=== PATIENT | female | born 1990 | race African-American/Black ===

== ENCOUNTER 2016-09-27 15:54 | Inpatient (IN) | payer OTHER ==
--- NOTE | 2016-09-27 16:14 | PDOC ---
History of Present Illness - General Chief Complaint: Chest Pain Stated Complaint: CHEST PAIN/ Time Seen by Provider: 09/27/16 16:11 History Source: Patient Exam Limitations: No Limitations - History of Present Illness Initial Comments: 09/27/16 16:25 26y F at approx 18 weeks gestation, hx of sickle cell (hx of multiple blood transfusiosn), prseenst with cp. The pt states she has had 1 month of URI like symptoms, and for th past 2 days she has had a substernal/epigastric sharp aching that is worse when she is coughing. The pt endorses having a couple of post tussive vomiting episodes due to her coughing, th coughing is productive of yellowish mucus. The pt denies any fever, hemoptysis, leg swelling, calf pain. The pt does endorse mild sob when ambulating. No hx of dvt/PEs. Pt staets her typical sickle cell crisis includes pain in her back. Pt also endorses feeling generally weak and feeling dizzy when she is walking around - she describes it as sensation of movement. Past History - Past Medical History Allergies/Adverse Reactions: Allergies Allergy/AdvReac Type Severity Reaction Status Date / Time No Known Allergies Allergy Verified 09/27/16 15:59 Home Medications: Ambulatory Orders Folic Acid 1 mg PO DAILY 08/10/16 Pnv95/Ferrous Fumarate/FA [ Caplet] 1 each PO DAILY 08/10/16 Anemia: Yes (SICKLE CELL) Asthma: No Cancer: No Cardiac Disorders: No CVA: No COPD: No CHF: No Dementia: No Diabetes: No GI Disorders: No Disorders: No HTN: No Hypercholesterolemia: No Liver Disease: No Suicide Attempt (Hx): No Seizures: No Thyroid Disease: No - Surgical History Abdominal Surgery: No Appendectomy: No Cardiac Surgery: No Cholecystectomy: No Lung Surgery: No Neurologic Surgery: No Orthopedic Surgery: No - Immunization History Immunization Up to Date: Yes - Psycho/Social/Smoking Cessation Hx Anxiety: No Suicidal Ideation: No Smoking Status: No Smoking History: Never smoked Have you smoked in the past 12 months: No Number of Cigarettes Smoked Daily: 0 Information on smoking cessation initiated: No Hx Alcohol Use: No Drug/Substance Use Hx: No Substance Use Type: None Hx Substance Use Treatment: No Cardiac Specific PMH - Complaint Specific PMHX Pacemaker: No Review of Systems - Review of Systems Able to Perform ROS?: Yes Comments:: 09/27/16 16:30 Constitutional - no reported Fever, Chills, weakness, HEENT: no reported vision changes, sore throat Respiratory: +cough, no reported sob, hemoptysis Cardiac: +light headedness, chest pain/epigastric pain no reported palpitations , leg swelling Abd/GI: +post tussive vomiting no reported abd pain, nausea, blood per rectum, melena, diarrhea : no reported dysuria, frequency, discharge Musculskelatal - +back pain, no reported joint swelling skin - no reported bruising, erythema, rash neurological: +vertigo no reported headache, numbness, focal weakness, tingling , ataxia, weakness hematologic: no reported anemia, easy bruising, easy bleeding *Physical Exam - Vital Signs Last Vital Signs Temp Pulse Resp BP Pulse Ox 98.6 F 74 18 100/59 95 09/27/16 18:00 09/27/16 16:02 09/27/16 16:02 09/27/16 16:02 09/27/16 16:02 - Physical Exam Comments: 09/27/16 16:31 GENERAL: The patient is awake, alert, and fully oriented, Nontoxic - in no acute distress. HEAD: Normocephalic, atraumatic. EYES: extraocular movements intact, sclera anicteric, conjunctiva clear. ENT: Normal voice, Moist mucous membranes. NECK: Normal range of motion, supple LUNGS: Breath sounds equal, clear to auscultation bilaterally. No wheezes, no rhonchi, no rales. HEART: Regular rate and rhythm, normal S1 and S2 without murmur, rub or gallop. ABDOMEN: gravid abdomen, soft, nontender, normoactive bowel sounds. No guarding , no rebound. No CVA tenderness EXTREMITIES: Normal range of motion, no edema. No clubbing or cyanosis. No cords, erythema, or tenderness. NEUROLOGICAL: No facial assymetry, Normal speech, PSYCH: Normal mood, normal affect. SKIN: Warm, Dry, normal turgor, Heart Score/ECG Review - ECG Impressions Comment:: 09/27/16 16:31 Twelve-lead EKG was performed and reviewed by me. There is normal sinus rhythm with a normal rate. rate of 61 The axis is normal. The intervals are normal. There is normal R wave progression There are no ST or T wave abnormalities. Impression: Normal twelve-lead EKG ED Treatment Course - LABORATORY CBC & Chemistry Diagram: 09/27/16 16:56 09/27/16 16:56 - ADDITIONAL ORDERS Additional order review: Laboratory Results 09/27/16 09/27/16 09/27/16 22:20 16:56 16:56 Sodium Potassium Chloride Carbon Dioxide Anion Gap BUN Creatinine Creat Clearance w eGFR Random Glucose Calcium Total Bilirubin AST ALT Alkaline Phosphatase Creatine Kinase Troponin I Total Protein Albumin Lipase 62 L Urine Color Shayy Urine Appearance Clear Urine pH 6.0 Ur Specific [place] 1.012 Urine Protein Negative Urine Glucose (UA) Negative Urine Ketones Negative Urine Blood Negative Urine Nitrite Negative Urine Bilirubin Negative Urine Urobilinogen 2.0 e.u/dl H Ur Leukocyte Esterase Negative Blood Type O POSITIVE Antibody Screen Negative Crossmatch See Detail 09/27/16 16:56 Sodium 137 Potassium 3.9 Chloride 108 H Carbon Dioxide 22 Anion Gap 7 L BUN 5 L D Creatinine 0.5 L D Creat Clearance w eGFR > 60 Random Glucose 70 L Calcium 7.8 L Total Bilirubin 2.0 H D AST 36 ALT 20 D Alkaline Phosphatase 80 D Creatine Kinase 40 Troponin I < 0.02 Total Protein 7.2 Albumin 3.2 L Lipase Urine Color Urine Appearance Urine pH Ur Specific [place] Urine Protein Urine Glucose (UA) Urine Ketones Urine Blood Urine Nitrite Urine Bilirubin Urine Urobilinogen Ur Leukocyte Esterase Blood Type Antibody Screen Crossmatch 09/27/16 16:56 RBC 2.37 L MCV 103.6 H MCHC 33.4 RDW 19.1 H MPV 9.9 D Neutrophils % 69.4 Lymphocytes % 19.7 Monocytes % 8.7 Eosinophils % 1.6 Basophils % 0.6 - RADIOLOGY Radiology Studies Ordered: Category Date Time Status CHEST PA & LAT [RAD] Stat Radiology 09/27/16 16:23 Taken - Medications Given in the ED: ED Medications Discontinued Medications Generic Name Dose Route Start Last Admin Trade Name Freq PRN Reason Stop Dose Admin Acetaminophen 650 mg 09/27/16 16:34 09/27/16 16:56 Tylenol - PO 09/27/16 16:35 650 mg ONCE ONE Administration Sodium Chloride 1,000 mls @ 1,000 mls/hr 09/27/16 16:23 09/27/16 16:56 Normal Saline - IV 09/27/16 17:22 1,000 mls/hr .Q1H ONE Administration Meclizine HCl 25 mg 09/27/16 16:23 09/27/16 16:56 Antivert - PO 09/27/16 16:24 25 mg ONCE ONE Administration Medical Decision Making - Medical Decision Making 09/27/16 16:32 26y F hx of sickle cell anemia, at approx 18 weeks gestation presents with cough /congestion, with substernal/epigastric nonradiating cp that is worse when she is coughing, pt also endorses malaise/fatigue. w/o leg swelling,calf pain, hemoptysis, several episodes of posttussive vomiting. w/o abd pain suspect her sypmtmos are secondary to bronchitis/viral syndrome. considered possible sickle cell crisis, however based on minimal severity of pain, unlikely - also considered PEa s the pt is , however feel it is unlikely as pt has been having associated URI like symptoms. will obtain ekg acetaminophen for pain meclizine for vertigo will obtain blood work to r/o anemia considered obtaining cxr to r/o pathology as pt has hx of sickle cell and persistent cough - i discussed risk of xray with the patient - and pt states she prefers to obtain the cxr and is aware of the risks and understands she will be shielded. 09/27/16 21:25 09/27/16 21:25 sent a retic count as pts bilirubin was high it is elevated to 14 possible sickle pain crisis pt states she normally gets transfused when feeling weak and hgb <9 will discuss with inspector paper products regarding recommendations 09/27/16 23:29 case dw/ dr. reynolds no specific recommendations for pts w/ sickle cell pain crsis - agrees with transufsion case d/w dr. brice agreed with admission for further mangaement/transfusion Case discussed in detail with admitting physician including history, physical exam and ancillary studies. Admitting physician has assumed care for the patient, will follow all pending diagnostics and will complete the evaluation and treatment. *DC/Admit/Observation/Transfer Diagnosis at time of Disposition: Sickle cell anemia with crisis, 14-20 weeks gestation of - Discharge Dispostion Condition at time of disposition: Guarded Admit: Yes Decision to Admit order Date/Time: Decision to Admit Order Category Date Time Status Decision to Admit to Hospital Routine Phy Order 09/27/16 23:30 Ordered
[2016-09-27] MEDS ORDERED: SODIUM CHLORIDE 1,000 ML IV ONE (16:23)
[2016-09-27] MEDS ORDERED: MECLIZINE HCL 25 MG TABLET (FP) PO ONE (16:23)
[2016-09-27] MEDS ORDERED: ACETAMINOPHEN 325 MG TABLET (FP) PO ONE (16:34)
[2016-09-27] MEDS ORDERED: ACETAMINOPHEN 325 MG TABLET (FP) ONE (16:42)
[2016-09-27] MEDS ORDERED: MECLIZINE HCL 25 MG TABLET (FP) ONE (16:43)
[2016-09-27 18:04] LABS: BASOPHIL 0.6 % (0-2.0); EOSINOPHIL 1.6 % (0-4.5); MCH 34.6 pg (25.7-33.7); MCHC 33.4 g/dl (32.0-36.0); MEAN CELL VOLUME 103.6 fl (80-96); MEAN PLT VOLUME 9.9 fl (7.5-11.1); NEUTROPHILS 69.4 % (42.8-82.8); PLATELET COUNT 331 K/MM3 (134-434); RDW 19.1 % (11.6-15.6); WHITE BLOOD COUNT 15.3 K/mm3 (4.0-10.0)
[2016-09-27 18:12] LABS: ALBUMIN 3.2 g/dl (3.4-5.0); ANION GAP 7 (8-16); CALCIUM 7.8 mg/dL (8.5-10.1); CO2 22 mmol/L (21-32); CREATININE 0.5 mg/dL (0.55-1.02); GLUCOSE,RANDOM 70 mg/dL (74-106); SGOT/AST 36 U/L (15-37); SGPT/ALT 20 U/L (12-78); TOT PROT 7.2 g/dl (6.4-8.2)
[2016-09-27 18:15] LABS: ALK PHOS 80 U/L (45-117); TROPONIN I < 0.02 ng/ml (0.00-0.05)
[2016-09-27 19:13] LABS: URINE APPEARANCE CLEAR; URINE BILIRUBIN NEGATIVE (NEGATIVE); URINE BLOOD NEGATIVE (NEGATIVE); URINE COLOR AMBER; URINE GLUCOSE (UA) NEGATIVE (NEGATIVE); URINE KETONE NEGATIVE (NEGATIVE); URINE LEUK ESTERASE NEGATIVE (NEGATIVE); URINE NITRITE NEGATIVE (NEGATIVE); URINE PROTEIN NEGATIVE (NEGATIVE); URINE UROBILINOGEN 2.0 E.U/dl E.U./dl (0.2-1.0)
[2016-09-27 19:48] LABS: ANISOCYTOSIS 1+; HYPOCHROMIA 1+; PLATELET COMMENT2 NO CLOTTING DETECTED; PLATELET ESTIMATE ADEQUATE (NORMAL); POLYCHROMASIA 1+
[2016-09-28 02:42] VITALS: BMI 24.2
[2016-09-28] MEDS ORDERED: morphine CARPU-JECT 2 MG/1 ML DISP.SYRIN IVPUSH PRN (03:24)
[2016-09-28] MEDS ORDERED: HYDROmorphone HCL CARPU-JECT 1 MG/1 ML DISP.SYRIN IVPB PRN ×2 (03:35→08:07)
--- NOTE | 2016-09-28 03:44 | HP ---
Admitting History and Physical - Admission Chief Complaint: left sided chest pain History of Present Illness: 26 year old 18week black f with hx of sickle cell disease, heart murmur /irreg heart beat, who presents to the er for evaluation of non- exertional left sided chest pain 10/10 x 2 days. she reports that pain as sharp and aggravated with breathing and laying on either side of her body. she states that the pain radiates to the lower left side of her back. She reports having a productive cough with yellowish sputum x 1 months and was seen in the ER 12-10 for URI symptoms. She reports nasal congestion with greenish discharge at home and 2 episodes of blood in nasal d/c while in the ER. She denies sinus pain. She also reports lethargy x 1month. She reports having phlegm stuck in her throat giving her the sensation of vomiting. She reports several episodes of post-tussive vomiting over the past several days. She denies any trauma, hemoptysis, leg swelling, leg edema, calf pain, recent prolonged immobolization or travel, prior pe/dvt, family hx of pe/dvt or clotting disorders. She reports periodic night sweats but relates it to her apt being hot. She reports having some loose stools x 1 day. she denies fevers, chills, diarrhea, dysuria, bloody stools, vaginal bleeding. She reports feeling fetus move. pmh/psh- , sickle cell disease, heart murmur/irreg heart beat social- denies tobacco, rec drugs, alcohol famhx- mom/dad healthy specialists: obgyn- follows at [facility] heme- follows at [facility] Ros neg except for hpi physical general- in nad hent- neck supple, trachea midline, no lymphadenopathy, eomi, at/nc resp- +cough, +nasal discharge, lungs ctab, no rales, no ronhci, no wheeze, no accessory muscle use cards- s1s2 heard, no leg swelling, extremity pulses +2, no ttp over chest wall , RRR skin- clean intact, no rashes, no tears, no lesions musk- normal arom bue ble gi- soft non-tender, no guarding, no rebound, no distention psych- cooperative, slightly agitated, normal affect neuro- cn2-12 intact, speech clear, no droop, no seizures, toes down going, prob list chest pain sickle cell crisis 18 weeks uri imaging: ekg reviewed cxr reviewed a/p 26 year old 18week black f with hx of sickle cell disease, heart murmur /irreg heart beat, who presents to the er for evaluation of non- exertional left sided chest pain 10/10 x 2 days admitted for eval of their emergent condition 1. atypical chest pain, ?acute chest pain syndrome v pna v pe v acs v other ekg neg for owen/std cxr negative on my read 1 st trop negative low suspicion for pe as patient no clinical signs suggestive;wells score= 0; perc =0 cycle trops IVF Pain control Transfuse 1 uprbc Supp O2 2. URI Supportive care patient refused flu swab per RN 3. 18 week cont vitamins no vaginal bleeding fen ns 150cc/hr regular diet dvt prophy scds, early ambulation, expect stay less than 2 days Dispo- likely d/c in 1-2 days History Source: Patient Limitations to Obtaining History: No Limitations - Past Medical History Cardiovascular: No: AFIB, Aneurysm, Aortic Insufficiency, Aortic Stenosis, CAD, CHF, Deep Vein Thrombosis, HTN, Hyperlipdemia, [place], Mitral Insufficiency, Mitral Stenosis, Murmur, Pulmonary Hypertension, Other ...LMP: 05/24/16 ...: Yes Heme/Onc: Yes: Anemia, Sickle Cell Disease - Smoking History Smoking history: Never smoked Have you smoked in the past 12 months: No Aproximately how many cigarettes per day: 0 - Alcohol/Substance Use Hx Alcohol Use: No Home Medications - Allergies Allergies/Adverse Reactions: Allergies Allergy/AdvReac Type Severity Reaction Status Date / Time No Known Allergies Allergy Verified 09/27/16 15:59 - Home Medications Home Medications: Ambulatory Orders Folic Acid 1 mg PO DAILY 08/10/16 Pnv95/Ferrous Fumarate/FA [ Caplet] 1 each PO DAILY 08/10/16 Family Disease History - Family Disease History Family Disease History: Diabetes: Father (sickle trait), Mother (sickle trait), Other: Father, Mother Physical Examination Vital Signs: Vital Signs Temperature 98.1 F 09/28/16 01:00 Pulse Rate 77 09/28/16 01:00 Respiratory Rate 19 09/28/16 01:00 Blood Pressure 110/69 09/28/16 01:00 O2 Sat by Pulse Oximetry (%) 98 09/28/16 01:00 Visit type - Emergency Visit Emergency Visit: Yes ED Registration Date: 09/28/16 Care time: The patient presented to the Emergency Department on the above date and was hospitalized for further evaluation of their emergent condition. - New Patient This patient is new to me today: Yes Date on this admission: 09/28/16 - Critical Care Critical Care patient: No
[2016-09-28] MEDS: SODIUM CHLORIDE 1,000 ML IV SCH (04:00)
--- NOTE | 2016-09-28 09:58 | HOSP ---
Physical Examination Vital Signs: Vital Signs Temperature 98.1 F 09/28/16 01:00 Pulse Rate 77 09/28/16 01:00 Respiratory Rate 19 09/28/16 01:00 Blood Pressure 110/69 09/28/16 01:00 O2 Sat by Pulse Oximetry (%) 98 09/28/16 01:00 Hospitalist Encounter Assessment: Subjective: The patient was seen and examined at the bedside, she is complaining about lower abdominal pain. Hydromorphine discontinued Acetaminophen for pain Folic acid, mvi, iv fluids Blood draw today at 10am was POST PRBC transfusion: Hgb 8.1 Current Medications Generic Name Dose Route Start Last Admin Trade Name Freq PRN Reason Stop Dose Admin Acetaminophen 650 mg 09/28/16 03:23 Tylenol - PO Q4H PRN FEVER OR PAIN Folic Acid 1 mg 09/28/16 10:00 Folic Acid - PO DAILY [facility] Sodium Chloride 1,000 mls @ 150 mls/hr 09/28/16 03:30 09/28/16 04:00 Normal Saline - IV Not Given ASDIR CATIA Multivit/Folic Acid/Iron 1 tab 09/28/16 10:00 Vitamins (Sjr) - PO DAILY [facility] Objective: Vital Signs Period Temp Pulse Resp BP Sys/Ornelas Pulse Ox Last 24 Hr 97.8 F-99.1 F 62-77 18-19 100-110/59-69 95-98 Physical Exam: General: NAD, A&Ox3 Lungs: CTA bilaterally Heart: RRR, S1S2. Reproducible left sided chest pain Abd: Soft, non-tender. mildly distended 2/2 Ext: Warm, well-perfused. 2+ DP/PT bilaterally Neuro: CN 2-12 intact CBCD WBC 15.3 K/mm3 (4.0-10.0) H 09/27/16 16:56 RBC 2.37 M/mm3 (3.60-5.2) L 09/27/16 16:56 Hgb 8.2 GM/dL (10.7-15.3) L 09/27/16 16:56 Hct 24.6 % (32.4-45.2) L 09/27/16 16:56 MCV 103.6 fl (80-96) H 09/27/16 16:56 MCHC 33.4 g/dl (32.0-36.0) 09/27/16 16:56 RDW 19.1 % (11.6-15.6) H 09/27/16 16:56 Plt Count 331 K/MM3 (134-434) 09/27/16 16:56 MPV 9.9 fl (7.5-11.1) D 09/27/16 16:56 CMP Sodium 137 mmol/L (136-145) 09/27/16 16:56 Potassium 3.9 mmol/L (3.5-5.1) 09/27/16 16:56 Chloride 108 mmol/L (98-107) H 09/27/16 16:56 Carbon Dioxide 22 mmol/L (21-32) 09/27/16 16:56 Anion Gap 7 (8-16) L 09/27/16 16:56 BUN 5 mg/dL (7-18) L D 09/27/16 16:56 Creatinine 0.5 mg/dL (0.55-1.02) L D 09/27/16 16:56 Creat Clearance w eGFR > 60 (>60) 09/27/16 16:56 Random Glucose 70 mg/dL (74-106) L 09/27/16 16:56 Calcium 7.8 mg/dL (8.5-10.1) L 09/27/16 16:56 Total Bilirubin 2.0 mg/dL (0.2-1.0) H D 09/27/16 16:56 AST 36 U/L (15-37) 09/27/16 16:56 ALT 20 U/L (12-78) D 09/27/16 16:56 Alkaline Phosphatase 80 U/L (45-117) D 09/27/16 16:56 Total Protein 7.2 g/dl (6.4-8.2) 09/27/16 16:56 Albumin 3.2 g/dl (3.4-5.0) L 09/27/16 16:56 CARDIAC ENZYMES Creatine Kinase 40 IU/L (26-192) 09/27/16 16:56 Troponin I < 0.02 ng/ml (0.00-0.05) 09/28/16 03:30 Assessment: This is a 26 year old female 18 week gestation, sickle cell disease , who presented to the ED with non-exertional left sided chest pain x2 days Plan: 1) Cardiology: Atypical chest pain - Trop x2 negative, f/u 3rd trop - EKG NSR @61, no ST elevations or depressions - Chest X-ray performed to r/o acute chest syndrome, no acute process noted - Well's score 0, low clinical suspicion for PE - Patient reports chest pain has resolved, now reports "typical" sickle cell pain in back and lower abdomen 2) Heme: sickle cell crisis - Continue IV fluids - Continue folic acid - Continue MVI - Elevated reticulocyte count, f/u lab today - Received 1u PRBC - No evidence of acute chest syndrome 3) ID: Upper respiratory infection - Likely viral, however leukocytosis - Afebrile - Patient refused flu swab per RN - Supportive care - Monitor WBC 4) OB: 18 week gestation - Continue folic acid - Continue MVI - No vaginal bleeding - Follows with OB (does not know name) at [facility] 5) F/E/N: - Monitor electrolytes - IV fluids 6) Prophylaxis: - OOB ambulating - SCDs bilaterally 7) Dispo: - Requires continued monitoring CODE STATUS: FULL CODE
[2016-09-28] MEDS: PRENATAL VITAMINS W/ FOLIC ACID TABLET (FP) PO SCH (10:11)
[2016-09-28] MEDS: FOLIC ACID 1 MG TABLET (FP) PO SCH (10:11)
[2016-09-28 10:40] LABS: BASOPHIL 0.8 % (0-2.0); EOSINOPHIL 2.6 % (0-4.5); MCH 35.4 pg (25.7-33.7); MEAN CELL VOLUME 101.2 fl (80-96); MEAN PLT VOLUME 9.3 fl (7.5-11.1); NEUTROPHILS 66.2 % (42.8-82.8); PLATELET COUNT 294 K/MM3 (134-434); WHITE BLOOD COUNT 13.4 K/mm3 (4.0-10.0)
[2016-09-28 11:04] LABS: ALBUMIN 2.9 g/dl (3.4-5.0); ALK PHOS 69 U/L (45-117); ANION GAP 9 (8-16); BILIRUBIN,TOTAL 2.1 mg/dL (0.2-1.0); CALCIUM 8.2 mg/dL (8.5-10.1); CO2 20 mmol/L (21-32); CREATININE 0.3 mg/dL (0.55-1.02); GLUCOSE,RANDOM 67 mg/dL (74-106); SGOT/AST 31 U/L (15-37); SGPT/ALT 18 U/L (12-78); TOT PROT 6.4 g/dl (6.4-8.2)
--- NOTE | 2016-09-28 13:09 | EKG ---
Test Reason : Blood Pressure : / mmHG Vent. Rate : 061 BPM Atrial Rate : 061 BPM P-R Int : 192 ms QRS Dur : 082 ms QT Int : 422 ms P-R-T Axes : -06 054 040 degrees QTc Int : 424 ms NORMAL SINUS RHYTHM NORMAL ECG WHEN COMPARED WITH ECG OF 10-AUG-2016 09:34, NO SIGNIFICANT CHANGE WAS FOUND Confirmed by MATTEO STAPLETON MD ([id number]) on 09/28/2016 1:09:09 PM Referred By: Overread By: MATTEO STAPLETON MD
[2016-09-28 13:15] LABS: TROPONIN I < 0.02 ng/ml (0.00-0.05)
[2016-09-28] MEDS: ACETAMINOPHEN 325 MG TABLET (FP) PO PRN (13:55)
[2016-09-28 14:37] LABS: ANISOCYTOSIS 2+; HYPOCHROMIA 2+; PLATELET ESTIMATE ADEQUATE (NORMAL); POIKILOCYTOSIS 2+; POLYCHROMASIA 2+
[2016-09-28] MEDS ORDERED: PT OWN MED DRAWER 7, Y5N ONE (15:24)
[2016-09-29] MEDS: SODIUM CHLORIDE 1,000 ML IV SCH ×2 (06:40→06:41)
[2016-09-29 06:58] VITALS: TEMP 98.4
[2016-09-29 08:23] LABS: MCH 35.3 pg (25.7-33.7); MCHC 34.8 g/dl (32.0-36.0); MEAN CELL VOLUME 101.4 fl (80-96); MEAN PLT VOLUME 9.3 fl (7.5-11.1); PLATELET COUNT 299 K/MM3 (134-434); RDW 21.3 % (11.6-15.6); WHITE BLOOD COUNT 12.2 K/mm3 (4.0-10.0)
[2016-09-29 08:43] LABS: ALBUMIN 2.7 g/dl (3.4-5.0); ANION GAP 7 (8-16); CALCIUM 7.9 mg/dL (8.5-10.1); CO2 22 mmol/L (21-32); GLUCOSE,RANDOM 79 mg/dL (74-106); SGOT/AST 29 U/L (15-37)
[2016-09-29 08:50] LABS: ALK PHOS 69 U/L (45-117); CREATININE 0.3 mg/dL (0.55-1.02); SGPT/ALT 16 U/L (12-78); TOT PROT 6.3 g/dl (6.4-8.2)
[2016-09-29] MEDS: ACETAMINOPHEN 325 MG TABLET (FP) PO PRN (10:34)
[2016-09-29] MEDS: FOLIC ACID 1 MG TABLET (FP) PO SCH (10:34)
[2016-09-29] MEDS: PRENATAL VITAMINS W/ FOLIC ACID TABLET (FP) PO SCH (10:49)
--- NOTE | 2016-09-29 12:14 | DS ---
[id number] Rate 18 09/29/16 06:00 Blood Pressure 103/60 09/29/16 06:00 O2 Sat by Pulse Oximetry (%) 98 09/28/16 21:00 Findings/Remarks: Physical Exam: General: NAD, A&Ox3 Lungs: CTA bilaterally Heart: RRR, S1S2. Reproducible left sided chest pain Abd: Soft, non-tender. mildly distended 2/2 Ext: Warm, well-perfused. 2+ DP/PT bilaterally Neuro: CN 2-12 intact Labs: CBC, BMP 09/29/16 07:30 09/29/16 07:30 Discharge Summary Reason For Visit: SICKLE CELL ANEMIA WITH CRISIS Current Active Problems 14-20 weeks gestation of (Acute) Sickle cell anemia with crisis (Acute) Hospital Course: This is a 26 year old female 18 week gestation, sickle cell disease, who presented to the ED with non-exertional left sided chest pain x2 days Plan: 1) Cardiology: Atypical chest pain - Trop x3 negative - EKG NSR @61, no ST elevations or depressions - Chest X-ray performed to r/o acute chest syndrome, no acute process noted - Well's score 0, low clinical suspicion for PE - Patient reports chest pain has resolved, now reports "typical" sickle cell pain in back and lower abdomen 2) Heme: sickle cell crisis - Continue IV fluids - Continue folic acid - Continue MVI - Elevated reticulocyte count, f/u lab today - Received 1u PRBC - No evidence of acute chest syndrome 3) ID: Upper respiratory infection - Likely viral, however leukocytosis - Afebrile - Patient refused flu swab per RN - Supportive care - Monitor WBC 4) OB: 18 week gestation - Continue folic acid - Continue MVI - No vaginal bleeding - Follows with OB (does not know name) at [facility] Instructed the patient to follow-up with pcp and OB as scheduled. Please return to the ED with new, persistent, or worsening symptoms. This discharge took 35 minutes to complete. Condition: Improved - Instructions Diet, Activity, Other Instructions: Activity as tolerated Regular diet May take shower f/u with [employer] Disposition: HOME - Home Medications Comprehensive Discharge Medication List: Ambulatory Orders Folic Acid 1 mg PO DAILY 08/10/16 Pnv95/Ferrous Fumarate/FA [ Caplet] 1 each PO DAILY 08/10/16 This patient is new to me today: No Emergency Visit: Yes ED Registration Date: 09/28/16 Care time: The patient presented to the Emergency Department on the above date and was hospitalized for further evaluation of their emergent condition. Critical Care patient: No - Discharge Referral Referred to [facility] Med [facility].: No
[2016-09-29 12:26] VITALS: BP 111/60; PULSE 72
== END 2016-09-29 12:21 | disposition home or self-care (01) | DRG 781 ==
LOC: JER 15:54 → JERBED 09-28 00:12 → J6S 09-28 02:32 → J8W 09-28 15:31
PROVIDERS: ADMIT Internal Medicine; ATTEND Registered Nurse
PROC: 30233N1 Transfusion of Nonautologous Red Blood Cells into Peripheral Vein, Percutaneous Approach (ICD-10-PCS; principal; 2016-09-28)
DX: O99.012 Anemia complicating pregnancy, second trimester (principal); D57.819 Other sickle-cell disorders with crisis, unspecified; O99.412 Diseases of the circulatory system complicating pregnancy, second trimester; J06.9 Acute upper respiratory infection, unspecified
CPT/HCPCS: 36415; 36430; 71020-TC; 80053; 81003; 82550; 83690; 84484; 85025; 85027; 85044; 86850; 86900; 86901; 86922; 93005; 93010; 94010; 99284-25; P9058

== ENCOUNTER 2016-11-03 19:39 | Inpatient (IN) | payer OTHER ==
[2016-11-03 17:54] LABS: URINE APPEARANCE CLEAR; URINE BILIRUBIN NEGATIVE (NEGATIVE); URINE COLOR AMBER; URINE GLUCOSE (UA) NEGATIVE (NEGATIVE); URINE KETONE NEGATIVE (NEGATIVE); URINE LEUK ESTERASE NEGATIVE (NEGATIVE); URINE NITRITE NEGATIVE (NEGATIVE); URINE UROBILINOGEN 2.0 E.U/dl E.U./dl (0.2-1.0)
[2016-11-03 18:09] LABS: URINE BLOOD 2+ (NEGATIVE); URINE PROTEIN 1+ (NEGATIVE)
[2016-11-03 18:12] LABS: URINE RBC 2 /hpf (0-3); URINE WBC 2 /hpf (3-5)
[2016-11-03 18:33] LABS: MCH 35.4 pg (25.7-33.7); MEAN CELL VOLUME 104.1 fl (80-96); MEAN PLT VOLUME 9.4 fl (7.5-11.1); PLATELET COUNT 271 K/MM3 (134-434); RDW 20.9 % (11.6-15.6); WHITE BLOOD COUNT 13.8 K/mm3 (4.0-10.0)
--- NOTE | 2016-11-03 18:51 | CON.OBG ---
Consult Consult Specialty:: lawyer probate Referred by:: Leonarda Lake Reason for Consultation:: ob evaluation pt known c/o sickle cell anemia - History of Present Illness Chief Complaint: 26 yrs , 23.3 weeks gestation, previous c/sect, , known c/o sickle cell anemia c/o backache, jointpain, pt feels she is in sickle cell crisis . no c/o abdominal cramping. vaginal discharge , no itching or odor to it History of Present Illness: pt was hospitalized last for sickle crisis on 09/28/16 & discharged on 09/29/16 she had received 1 unit of pack cell she had cardilogy consult for atypical chest pain , ekg done, Pulmonary embolism was ruled out. pt had 3 or 4 admissions in present pregn for sickle crisis sh had one admission at [facility] at 5 weeks gestation as per pt was tranfused there .. 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: No: CVA, Migraine, Seizure Cardio/Vascular: No: AFIB, Aneurysm, Aortic Insufficiency, Aortic Stenosis, CAD , CHF, Deep Vein Thrombosis, HTN, Hyperlipdemia, RI, Mitral Insufficiency, Mitral Stenosis, Murmur, Pulmonary Hypertension, Other Pulmonary: No: Asthma Gastrointestinal: Yes: Constipation Renal/: Yes: UTI (in past ) ...LMP: 05/24/16 (EDC 02/28/17, 23.3 weeks gestation ) ...: Yes ...: 2 ...Para: 1 (primary c/section 10/2010 [facility] ) Heme/Onc: Yes: Sickle Cell Disease (multiple admissions for srisi, mutiple transfusions ) - Past Surgical History Past Surgical History: Yes: (10/2010) - Alcohol/Substance Use Hx Alcohol Use: No History of Substance Use: reports: None - Smoking History Smoking history: Never smoked Have you smoked in the past 12 months: No Aproximately how many cigarettes per day: 0 Home Medications - Allergies Allergies/Adverse Reactions: Allergies Allergy/AdvReac Type Severity Reaction Status Date / Time No Known Allergies Allergy Verified 11/03/16 14:42 - Home Medications Home Medications: Ambulatory Orders Folic Acid 1 mg PO DAILY 08/10/16 Pnv95/Ferrous Fumarate/FA [ Caplet] 1 each PO DAILY 08/10/16 Family Disease History - Family Disease History Family Disease History: Diabetes: Father (sickle trait), Mother (sickle trait), Other: Father, Mother Physical Exam-[employer]BI[employer]ST[employer]ER Vital Signs: Vital Signs Temperature 97.6 F 11/03/16 17:37 Pulse Rate 62 11/03/16 17:37 Respiratory Rate 20 11/03/16 17:37 Blood Pressure 126/62 11/03/16 17:37 O2 Sat by Pulse Oximetry (%) 97 11/03/16 14:42 Constitutional: Yes: Pallor (pt angry & hostile), Other HENT: Yes: Normocephalic Renal/: No: CVA Tenderness - Left, CVA Tenderness - Right External Genitalia: Yes: Normal Vaginal Exam: Yes: Normal, Discharge (normal) Cervix: Yes: Normal, Other (close, firm long) Uterus: Yes: Other ( UT 22 weeks size, FPF FHs) Edema: No Labs: CBC, BMP 11/03/16 17:45 Problem List - Problems (1) 23 weeks gestation of Code(s): Z3A.23 - 23 WEEKS GESTATION OF (2) Sickle cell anemia of mother during Code(s): O99.019 - ANEMIA COMPLICATING , UNSPECIFIED TRIMESTER D57.1 - SICKLE-CELL DISEASE WITHOUT CRISIS Assessment/Plan 26 yrs , 23,3 weeks previous c/section, known c/o sickle cell anemia pt states she has symptoms of sickle cell crisis. obstetrically pt is no evidence of labor sono done is reported 22 weeks SLIUP, Breech , cx 4.1 cm . 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
[2016-11-03 19:11] LABS: ALBUMIN 2.8 g/dl (3.4-5.0); ALK PHOS 75 U/L (45-117); ANION GAP 7 (8-16); BILIRUBIN,TOTAL 1.8 mg/dL (0.2-1.0); CALCIUM 8.5 mg/dL (8.5-10.1); CO2 23 mmol/L (21-32); CREATININE 0.4 mg/dL (0.55-1.02); GLUCOSE,RANDOM 68 mg/dL (74-106); SGOT/AST 35 U/L (15-37); SGPT/ALT 18 U/L (12-78); TOT PROT 6.5 g/dl (6.4-8.2)
--- NOTE | 2016-11-03 19:27 | PDOC ---
History of Present Illness <Watson Silva - Last Filed: 11/03/16 19:17> - General History Source: Patient Exam Limitations: No Limitations - History of Present Illness Initial Comments: 11/03/16 19:28 The patient is a 26 year old female (23 weeks ), with a significant past medical history of sickle cell anemia, who presents to the emergency department with RLQ abdominal pain, bilateral knee pain and R hip pain for the past 2 days. The patient rates her pain as 8/10 in severity and describes the pain as straining. As per hospital records, pt was hospitalized last for sickle crisis on 09/28/16 & discharged on 09/29/16. Patient suffers from sickle cell anemia and feels it may be early stages of a crisis. She denies taking any medications for pain relief. The patient also reports sore throat, clear rhinorrhea and nasal congestion for the past 2 days. The patient denies chest pain, headache or dizziness. She denies fever, chills, nausea, vomit, diarrhea or constipation. She denies vaginal bleeding, dysuria, frequency, urgency or hematuria. Hand Folder: Dr Clark <Devika Vasquez - Last Filed: 11/03/16 19:43> - General Chief Complaint: Pain, Acute Stated Complaint: SICKLE CELL CRISIS/ PAIN (23 WKS ) Time Seen by Provider: 11/03/16 19:04 Past History - Past Medical History Anemia: Yes (SICKLE CELL) Asthma: No Cancer: No Cardiac Disorders: No CVA: No COPD: No CHF: No Dementia: No Diabetes: No GI Disorders: No Disorders: No HTN: No Hypercholesterolemia: No Liver Disease: No Suicide Attempt (Hx): No Seizures: No Thyroid Disease: No - Surgical History Abdominal Surgery: No Appendectomy: No Cardiac Surgery: No Cholecystectomy: No Lung Surgery: No Neurologic Surgery: No Orthopedic Surgery: No - Reproductive History Is Patient Now?: Yes - Immunization History Immunization Up to Date: Yes - Psycho/Social/Smoking Cessation Hx Anxiety: No Suicidal Ideation: No Smoking Status: No Smoking History: Never smoked Have you smoked in the past 12 months: No Number of Cigarettes Smoked Daily: 0 Hx Alcohol Use: No Drug/Substance Use Hx: No Substance Use Type: None Hx Substance Use Treatment: No <Watson Silva - Last Filed: 11/03/16 19:17> <Devika Vasquez - Last Filed: 11/03/16 19:43> - Past Medical History Allergies/Adverse Reactions: Allergies Allergy/AdvReac Type Severity Reaction Status Date / Time No Known Allergies Allergy Verified 11/03/16 14:42 Home Medications: Ambulatory Orders Folic Acid 1 mg PO DAILY 08/10/16 Pnv95/Ferrous Fumarate/FA [ Caplet] 1 each PO DAILY 08/10/16 Review of Systems - Review of Systems Able to Perform ROS?: Yes Comments:: 11/03/16 19:30 (+) RLQ abdominal pain, bilateral knee pain and R hip pain <Devika Vasquez - Last Filed: 11/03/16 19:43> *Physical Exam - Vital Signs Last Vital Signs Temp Pulse Resp BP Pulse Ox 97.6 F 62 20 126/62 97 11/03/16 17:37 11/03/16 17:37 11/03/16 17:37 11/03/16 17:37 11/03/16 14:42 - Physical Exam General Appearance: Yes: Nourished, Appropriately Dressed. No: Apparent Distress HEENT: positive: Normal ENT Inspection, Nasal Congestion, Rhinorrhea. negative : Sinus Tenderness Neck: positive: Supple. negative: Tender Respiratory/Chest: positive: Lungs Clear, Normal Breath Sounds. negative: Chest Tender, Respiratory Distress Cardiovascular: positive: Regular Rhythm, Regular Rate Gastrointestinal/Abdominal: positive: Soft. negative: Tender Musculoskeletal: positive: Normal Inspection. negative: CVA Tenderness, Vertebral Tenderness Extremity: positive: Normal Capillary Refill, Normal Range of Motion. negative : Pedal Edema Integumentary: positive: Normal Color. negative: Jaundice, Rash Neurologic: positive: Fully Oriented, Alert, Normal Mood/Affect, Normal Response , Motor Strength 5/5 <Watson Silva - Last Filed: 11/03/16 19:17> - Vital Signs Last Vital Signs Temp Pulse Resp BP Pulse Ox 97.6 F 62 20 126/62 97 11/03/16 17:37 11/03/16 17:37 11/03/16 17:37 11/03/16 17:37 11/03/16 14:42 <Devika Vasquez - Last Filed: 11/03/16 19:43> ED Treatment Course - LABORATORY CBC & Chemistry Diagram: 11/03/16 17:45 11/03/16 18:24 - ADDITIONAL ORDERS Additional order review: Laboratory Results 11/03/16 16:48 Urine Color Shayy Urine Appearance Clear Urine pH 6.0 Ur Specific [place] 1.013 Urine Protein 1+ H Urine Glucose (UA) Negative Urine Ketones Negative Urine Blood 2+ H Urine Nitrite Negative Urine Bilirubin Negative Urine Urobilinogen 2.0 e.u/dl H Ur Leukocyte Esterase Negative Urine RBC 2 Urine WBC 2 Ur Epithelial Cells Few 11/03/16 17:45 RBC 2.06 L MCV 104.1 H MCHC 34.0 RDW 20.9 H MPV 9.4 Neutrophils % Y Lymphocytes % Y <Watson Silva - Last Filed: 11/03/16 19:17> - LABORATORY CBC & Chemistry Diagram: 11/03/16 17:45 11/03/16 18:24 - ADDITIONAL ORDERS Additional order review: Laboratory Results 11/03/16 16:48 Urine Color Shayy Urine Appearance Clear Urine pH 6.0 Ur Specific [place] 1.013 Urine Protein 1+ H Urine Glucose (UA) Negative Urine Ketones Negative Urine Blood 2+ H Urine Nitrite Negative Urine Bilirubin Negative Urine Urobilinogen 2.0 e.u/dl H Ur Leukocyte Esterase Negative Urine RBC 2 Urine WBC 2 Ur Epithelial Cells Few 11/03/16 17:45 RBC 2.06 L MCV 104.1 H MCHC 34.0 RDW 20.9 H MPV 9.4 Neutrophils % Y Lymphocytes % Y <Devika Vasquez - Last Filed: 11/03/16 19:43> Medical Decision Making - Medical Decision Making 11/03/16 19:18 sickle cell anemia at 23 week mild crisis followed at [facility] (high risk ) uri symptoms upset but unclear why since she was offered and written for pain control. screaming and cursing in ER . <Watson Silva - Last Filed: 11/03/16 19:17> - Medical Decision Making 11/03/16 19:34 Dr. Trujillo was paged via phone answering service a 7:36 PM on 11/03/2015 11/03/16 19:42 Dr. Jackson was paged overhead at 7:39 Pm Responded to the page at 7:43 PM <Devika Vasquez - Last Filed: 11/03/16 19:43> *DC/Admit/Observation/Transfer <Watson Silva - Last Filed: 11/03/16 19:17> - Attestations Scribe Attestion: 11/03/16 19:30 Documentation prepared by Devika Vasquez, acting as medical interpreter for Watson Silva MD <Devika Vasquez - Last Filed: 11/03/16 19:43> Diagnosis at time of Disposition: Lower abdominal pain - Discharge Dispostion Disposition: TRANSFER ACUTE CARE/OTHER HOSP Condition at time of disposition: Stable - Referrals Referrals: Nely Trujillo MD [Staff Physician] - (PT IS NOT IN LABOR; IS HIGH RISK AND SHE IS TO GO TO [facility] FOR FOLLOW UP OF SICKLE CELL ;) - Patient Instructions - Post Discharge Activity
[~2016-11-03 19:39] MED LIST: HYDROmorphone HCL CARPU-JECT 2 MG/1 ML DISP.SYRIN IM ONE; SODIUM CHLORIDE 1,000 ML IV STA
[2016-11-03] MEDS ORDERED: HYDROmorphone HCL CARPU-JECT 2 MG/1 ML DISP.SYRIN ONE (19:45)
[2016-11-03] MEDS ORDERED: SODIUM CHLORIDE 1,000 ML IV STA (19:46)
[2016-11-03] MEDS ORDERED: HYDROmorphone HCL CARPU-JECT 2 MG/1 ML DISP.SYRIN IVPUSH ONE (19:46)
--- NOTE | 2016-11-03 19:57 | PDOC ---
History of Present Illness - General History Source: Patient Exam Limitations: No Limitations - History of Present Illness Initial Comments: 11/03/16 20:00 The patient is a 26 year old female (23 weeks ), with a significant past medical history of sickle cell anemia, who presents to the emergency department with RLQ abdominal pain, bilateral knee pain and R hip pain for the past 2 days. The patient rates her pain as 8/10 in severity and describes the pain as straining. As per hospital records, pt was hospitalized last for sickle crisis on 09/28/16 & discharged on 09/29/16. Patient suffers from sickle cell anemia and feels it may be early stages of a crisis. She denies taking any medications for pain relief. The patient also reports sore throat, clear rhinorrhea and nasal congestion for the past 2 days. The patient denies chest pain, headache or dizziness. She denies fever, chills, nausea, vomit, diarrhea or constipation. She denies vaginal bleeding, dysuria, frequency, urgency or hematuria. Search Marketing Specialist: Dr Clark <Devika Vasquez - Last Filed: 11/03/16 20:50> <Watson Silva - Last Filed: 11/03/16 20:56> - General Stated Complaint: PAIN/23WKS Time Seen by Provider: 11/03/16 19:41 Past History <Devika Vasquez - Last Filed: 11/03/16 20:50> - Past Medical History Anemia: Yes (SICKLE CELL) Asthma: No Cancer: No Cardiac Disorders: No CVA: No COPD: No CHF: No Dementia: No Diabetes: No GI Disorders: No Disorders: No HTN: No Hypercholesterolemia: No Liver Disease: No Suicide Attempt (Hx): No Seizures: No Thyroid Disease: No - Surgical History Abdominal Surgery: No Appendectomy: No Cardiac Surgery: No Cholecystectomy: No Lung Surgery: No Neurologic Surgery: No Orthopedic Surgery: No - Immunization History Immunization Up to Date: Yes - Psycho/Social/Smoking Cessation Hx Anxiety: No Suicidal Ideation: No Smoking Status: No Smoking History: Never smoked Have you smoked in the past 12 months: No Number of Cigarettes Smoked Daily: 0 Hx Alcohol Use: No Drug/Substance Use Hx: No Substance Use Type: None Hx Substance Use Treatment: No <Watson Silva - Last Filed: 11/03/16 20:56> - Past Medical History Allergies/Adverse Reactions: Allergies Allergy/AdvReac Type Severity Reaction Status Date / Time No Known Allergies Allergy Verified 11/03/16 14:42 Home Medications: Ambulatory Orders Folic Acid 1 mg PO DAILY 08/10/16 Pnv95/Ferrous Fumarate/FA [ Caplet] 1 each PO DAILY 08/10/16 Review of Systems - Review of Systems Able to Perform ROS?: Yes Comments:: 11/03/16 20:00 (+) RLQ abdominal pain, bilateral knee pain and R hip pain <Devika Vasquez - Last Filed: 11/03/16 20:50> *Physical Exam - Physical Exam General Appearance: Yes: Nourished, Appropriately Dressed. No: Apparent Distress HEENT: positive: Normal ENT Inspection Neck: positive: Supple. negative: Tender Respiratory/Chest: positive: Lungs Clear, Normal Breath Sounds. negative: Chest Tender, Respiratory Distress Cardiovascular: positive: Regular Rhythm, Regular Rate Gastrointestinal/Abdominal: positive: Normal Bowel Sounds, Soft. negative: Tender Musculoskeletal: positive: Normal Inspection. negative: CVA Tenderness, Vertebral Tenderness Extremity: positive: Normal Capillary Refill, Normal Inspection, Normal Range of Motion Integumentary: positive: Normal Color. negative: Jaundice Neurologic: positive: Fully Oriented, Alert, Normal Mood/Affect, Normal Response , Motor Strength 5/5 <Watson Silva - Last Filed: 11/03/16 20:56> ED Treatment Course - Medications Given in the ED: ED Medications Discontinued Medications Generic Name Dose Route Start Last Admin Trade Name Freq PRN Reason Stop Dose Admin Hydromorphone HCl 2 mg 11/03/16 19:46 11/03/16 19:49 Dilaudid Injection - IVPUSH 11/03/16 19:47 2 mg ONCE ONE Administration <Devika Vasquez - Last Filed: 11/03/16 20:50> - Medications Given in the ED: ED Medications Discontinued Medications Generic Name Dose Route Start Last Admin Trade Name Freq PRN Reason Stop Dose Admin Hydromorphone HCl 2 mg 11/03/16 19:46 11/03/16 19:49 Dilaudid Injection - IVPUSH 11/03/16 19:47 2 mg ONCE ONE Administration <Watson Silva - Last Filed: 11/03/16 20:56> Medical Decision Making - Medical Decision Making 11/03/16 20:00 Dr. Trujillo was paged via phone answering service a 7:36 PM on 11/03/2015 11/03/16 19:42 Dr. Jackson was paged overhead at 7:39 Pm Responded to the page at 7:43 PM At 7:46 PM an additional chart was opened. At 8:[address] Trujillo was paged. At 8:[address] Mullins discussed the case with Dr. Trujillo <Devika Vasquez - Last Filed: 11/03/16 20:50> *DC/Admit/Observation/Transfer - Attestations Scribe Attestion: 11/03/16 20:01 Documentation prepared by Devika Vasquez, acting as medical attendant for Watson Silva MD <Devika Vasquez - Last Filed: 11/03/16 20:50> - Discharge Dispostion Admit: Yes <Watson Silva - Last Filed: 11/03/16 20:56> Diagnosis at time of Disposition: 23 weeks gestation of , Sickle cell anemia with crisis - Discharge Dispostion Condition at time of disposition: Stable
[2016-11-03 20:18] LABS: ANISOCYTOSIS 2+; HYPOCHROMIA 2+; PLATELET ESTIMATE ADEQUATE (NORMAL); POIKILOCYTOSIS 2+; POLYCHROMASIA 1+
[2016-11-03] MEDS ORDERED: ONDANSETRON 4 MG/2 ML VIAL IVPB ONE (20:58)
[2016-11-03] MEDS ORDERED: morphine CARPU-JECT 2 MG/1 ML DISP.SYRIN IVPUSH PRN (21:07)
--- NOTE | 2016-11-03 21:09 | CONSULT ---
Consultation: REQUESTING PROVIDER: Nely Trujillo CONSULT REQUEST: We have been asked to medically evaluate this patient for ( specify). HISTORY OF PRESENT ILLNESS: Patient is a 26 year old (23 weeks) female with a PMHx of sickle cell disease who complains of a two day history persistent right hip, right groin, right knee, and back pain described as "broken bones" type of pain with a severity of 8/10. Patient states this type of pain is similar to her previous sickle cell crisis pain and decided to come to the hospital for further work up. Patient reports the pain began after starting antibiotics for bacteremia found in her urine 4 days ago. Patient states she was given Ampicillin and believes that's what caused her to become sick. Patient reports she is still experiencing white thick discharge with mild vaginal itching. Patient also reports in the last two days she's had cold symptoms including nausea, vomiting , non productive cough, chills, and mild shortness of breath when coughing. Otherwise, patient denies chest pain, palpitations, headache, dizziness, acute vision changes, abdominal pain, gait abnormality. Last sickle cell crisis was 09/28/16. LNMP: May 24, 2016 REVIEW OF SYSTEMS: CONSTITUTIONAL: chills Absent: fever, diaphoresis, generalized weakness, malaise, loss of appetite, weight change HEENT: rhinorrhea, nasal congestion, throat pain Absent: throat swelling, difficulty swallowing, mouth swelling, ear pain, eye pain, visual changes CARDIOVASCULAR: Absent: chest pain, syncope, palpitations, irregular heart rate, lightheadedness , peripheral edema RESPIRATORY: cough, shortness of breath Absent: dyspnea with exertion, orthopnea, wheezing, stridor, hemoptysis GASTROINTESTINAL: Absent: abdominal pain, abdominal distension, nausea, vomiting, diarrhea, constipation, melena, hematochezia GENITOURINARY: Vaginal discharge, vaginal itching Absent: dysuria, frequency, urgency, hesitancy, hematuria, flank pain, genital pain MUSCULOSKELETAL: Right knee joint pain Absent: myalgia, arthralgia, joint swelling, back pain, neck pain SKIN: Absent: rash, itching, pallor HEMATOLOGIC/IMMUNOLOGIC: Absent: easy bleeding, easy bruising, lymphadenopathy, frequent infections ENDOCRINE: Absent: unexplained weight gain, unexplained weight loss, heat intolerance, cold intolerance NEUROLOGIC: Absent: headache, focal weakness or paresthesias, dizziness, unsteady gait, seizure, mental status changes, bladder or bowel incontinence PSYCHIATRIC: Absent: anxiety, depression, suicidal or homicidal ideation, hallucinations. PHYSICAL EXAMINATION Vital Signs - 24 hr 11/03/16 20:07 Temperature 98.0 F Pulse Rate 76 Respiratory 20 Rate Blood Pressure 127/78 O2 Sat by Pulse 96 Oximetry (%) GENERAL: Awake, alert, and fully oriented, in no acute distress. HEENT: Pupils equal, round and reactive to light, sclera anicteric, conjunctiva clear, ears normal, oropharynx clear without exudates. Moist mucous membranes. NECK: Supple without lymphadenopathy, JVD, or masses. LUNGS: Breath sounds equal, clear to auscultation bilaterally. No wheezes, and no crackles. No accessory muscle use. HEART: Regular rate and rhythm, normal S1 and S2 without murmur, rub or gallop. ABDOMEN: Soft, nontender, not distended, normoactive bowel sounds, no guarding, no rebound, no masses. No hepatomegaly or splenomegaly. MUSCULOSKELETAL: Normal range of motion at all joints. No bony deformities. No CVA tenderness. UPPER EXTREMITIES: 2+ pulses, warm, well-perfused. No cyanosis. No clubbing. Cap refill <2 seconds. No peripheral edema. LOWER EXTREMITIES: 2+ pulses, warm, well-perfused. No calf tenderness. No peripheral edema. Mild tenderness upon palpation of right groin area NEUROLOGICAL: No focal deficits. Normal speech. Normal gait. PSYCHIATRIC: Cooperative. Good eye contact. Appropriate mood and affect. SKIN: Warm, dry, normal turgor, no rashes or lesions noted. Laboratory Results - last 24 hr 11/03/16 20:27 Crossmatch See Detail Active Medications Generic Name Dose Route Start Last Admin Trade Name Freq PRN Reason Stop Dose Admin Morphine Sulfate 2 mg 11/03/16 21:07 Morphine Injection - IVPUSH Q4H PRN PAIN ASSESSMENT/PLAN: Patient is a 26 year old (23 weeks) female with a PMHx of sickle cell disease who complained of right hip, right groin, right knee, and back pain for the last two days . Patient was found to have a hemoglobin of 7.3 and RDW of 20.9. Patient will be admitted to OBGYN by Nely Nunez Recommendations: Sickle cell crisis -Hemoglobin 7.3. Should be above 9 when -2 units of PRBC's -IV Fluids with Normal Saline -Pain Control with Morphine 2mg IVP Q4H -Repeat CBC Vaginal Discharge and Pruritus -Rule out Yeast -U/A -Urine Culture F/E/N -IV NS @100mls/hr -Electrolytes wnl -Regular diet prophylaxis -SCD's for DVT Disposition -Full code -Admitted to OBGYN Dispo: We will continue to follow the patient. Thank you for this consultative opportunity. Visit type - Emergency Visit Emergency Visit: Yes ED Registration Date: 11/03/16 Care time: The patient presented to the Emergency Department on the above date and was hospitalized for further evaluation of their emergent condition. - New Patient This patient is new to me today: Yes Date on this admission: 11/03/16 - Critical Care Critical Care patient: No
[2016-11-03] MEDS ORDERED: ONDANSETRON 4 MG/2 ML VIAL ONE (21:14)
--- NOTE | 2016-11-04 00:47 | HP ---
Past Medical History - Primary Care Physician PCP:: Nely Trujillo - Admission Chief Complaint: 26 yrs , previous c/section 23.3 weeks is diagnozed Sickle cell crisis & is advised admission by ER Physiician receiving pack cell transfusuion .& received iv hydromophone injection. pt c/o joints pain, back ache mainly History of Present Illness: pt is known c/o sickle anemia. she has care with Dr Clark . work up not available . pt states he had referred her to [facility] , she was hospitalized & transfused there at 5 weeks gestation. pt has several episodes of sickle cell crisis during this itself 3 or 4 times she states l multiple before when no . pt states she does follow up with registered associate Dr Trivedi at [facility] & care at [facility]. 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 No: CVA, Migraine, Seizure Cardiovascular: No: AFIB, Aneurysm, Aortic Insufficiency, Aortic Stenosis, CAD, CHF, Deep Vein Thrombosis, HTN, Hyperlipdemia, [place], Mitral Insufficiency, Mitral Stenosis, Murmur, Pulmonary Hypertension, Other Pulmonary: No: Asthma Gastrointestinal: Yes: Constipation Renal/: Yes: UTI (in past ) ...: 2 ...Para: 1 ...Term: 1 (primary c/section 10/2010 [facility] ) ...LMP: 05/24/16 ... Weeks Gestation by Dates: 23.3 ...EDC by Dates: 02/28/17 ...EDC by Sono: 02/28/17 Heme/Onc: Yes: Sickle Cell Disease (multiple admissions for srisi, mutiple transfusions ) Infectious Disease: Yes: Other (not known) Psych: Yes: Other (declines) - Past Surgical History Past Surgical History: Yes: (10/2010) Hx Myomectomy: No Hx Transabdominal Cerclage: No - Smoking History Smoking history: Never smoked Have you smoked in the past 12 months: No Aproximately how many cigarettes per day: 0 - Alcohol/Substance Use Hx Alcohol Use: No History of Substance Use: reports: None Home Medications - Allergies Allergies/Adverse Reactions: Allergies Allergy/AdvReac Type Severity Reaction Status Date / Time No Known Allergies Allergy Verified 11/03/16 14:42 - Home Medications Home Medications: Ambulatory Orders Folic Acid 1 mg PO DAILY 08/10/16 Pnv95/Ferrous Fumarate/FA [ Caplet] 1 each PO DAILY 08/10/16 Family Disease History - Family Disease History Family Disease History: Diabetes: Father (sickle trait), Mother (sickle trait), Other: Father, Mother Physical Exam - Maternity Vital Signs: Vital Signs Temperature 97.9 F 11/04/16 00:26 Pulse Rate 68 11/04/16 00:26 Respiratory Rate 20 11/04/16 00:26 Blood Pressure 105/70 11/04/16 00:26 O2 Sat by Pulse Oximetry (%) 98 11/04/16 00:26 Selected Entries 11/03/16 23:06 Temperature 98.1 F Pulse Rate [ 70 Right Radial] Blood Pressure 111/54 [Right] Constitutional: Yes: Pallor, Other (upset aggrevated) Eyes: Yes: WNL HENT: Yes: WNL, Normocephalic Neck: Yes: WNL Cardiovascular: Yes: WNL, Regular Rate and Rhythm Lungs: Clear to auscultation Breast(s): Yes: WNL - Abdominal Exam/OB Fundal Height: 22 Number of Fetuses: Single Presentation: Other (FPF) Contractions: No Monitor Mode: Doppler Heart Rate (range): 150 Heart Rate Location: Midline - Vaginal Exam/OB Vaginal Bleediing: No Speculum Exam: No Dilatation (cm): close Presentation: [place]: -4 - Physical Exam Musculoskeletal: Yes: Back Pain, Other (joints pain) Extremities: Yes: WNL. No: Calf Tenderness Edema: No Deep Tendon Reflex Grade: Normal +2 ...Motor Strength: WNL Psychiatric: Yes: WNL, Alert, Oriented, Agitated - Labs Lab Results: Laboratory Tests 11/08/10 10/07/12 09/29/16 07:50 07:35 07:30 Corrected WBC (auto) 11.07 WBC RBC Hgb Hct MCV RDW Plt Count Monocytes % Nucleated RBCs Differential Comment Platelet Estimate Polychromasia Hypochromic-Microcytic Poikilocytosis Anisocytosis Macrocytosis Morphology Comment Hemoglobin A 28.9 L Hemoglobin A2 3.8 H Hemoglobin C 0 Hemoglobin S 62.4 H Retic Count 10.66 H* D Sodium Potassium Chloride Carbon Dioxide BUN Creatinine Creat Clearance w eGFR Random Glucose Calcium Total Bilirubin AST ALT Alkaline Phosphatase Urine Protein Urine Glucose (UA) Urine Ketones Urine Blood Urine Nitrite Urine Bilirubin Urine Urobilinogen Ur Leukocyte Esterase Urine RBC Urine WBC Ur Epithelial Cells 11/03/16 11/03/16 11/03/16 16:48 17:45 18:24 Corrected WBC (auto) WBC 13.8 H RBC 2.06 L Hgb 7.3 L Hct 21.5 L MCV 104.1 H RDW 20.9 H Plt Count 271 Monocytes % 4.0 Nucleated RBCs 1 H Differential Comment Manual diff done Platelet Estimate Adequate Polychromasia 1+ Hypochromic-Microcytic 2+ Poikilocytosis 2+ Anisocytosis 2+ Macrocytosis 1+ Morphology Comment Slide scanned Hemoglobin A Hemoglobin A2 Hemoglobin C Hemoglobin S Retic Count Sodium 138 Potassium 3.6 Chloride 108 H Carbon Dioxide 23 BUN 4 L D Creatinine 0.4 L D Creat Clearance w eGFR > 60 Random Glucose 68 L Calcium 8.5 Total Bilirubin 1.8 H AST 35 D ALT 18 Alkaline Phosphatase 75 Urine Protein 1+ H Urine Glucose (UA) Negative Urine Ketones Negative Urine Blood 2+ H Urine Nitrite Negative Urine Bilirubin Negative Urine Urobilinogen 2.0 e.u/dl H Ur Leukocyte Esterase Negative Urine RBC 2 Urine WBC 2 Ur Epithelial Cells Few Problem List - Problems (1) 23 weeks gestation of Code(s): Z3A.23 - 23 WEEKS GESTATION OF (2) Sickle cell anemia with crisis Code(s): D57.00 - HB-SS DISEASE WITH CRISIS, UNSPECIFIED Assessment/Plan 26 yrs 23.3 weeks , previous c/section, known c/o sickle cell anemia , admitted for sickle cell crisis severe anemia hgb 7.3 pt has been given pack cell transfusion by ER physician, hydromorphone for pain management Hematology consut requested with Dr Sudarshan calles t/c made [phone], called back , she will have her partner Dr Lopez see the patient in AM tomorrow. . continue iv hydration
[2016-11-04] MEDS: SODIUM CHLORIDE 1,000 ML IV SCH ×2 (02:11→15:56)
[2016-11-04] MEDS ORDERED: morphine CARPU-JECT 2 MG/1 ML DISP.SYRIN ONE (02:14)
[2016-11-04] MEDS ORDERED: HYDROmorphone HCL CARPU-JECT 2 MG/1 ML DISP.SYRIN IVPUSH SCH (03:15)
[2016-11-04] MEDS ORDERED: HYDROmorphone HCL CARPU-JECT 2 MG/1 ML DISP.SYRIN IVPUSH PRN (04:45)
[2016-11-04 07:07] LABS: BASOPHIL 1.4 % (0-2.0); EOSINOPHIL 1.9 % (0-4.5); MCH 34.8 pg (25.7-33.7); MCHC 34.4 g/dl (32.0-36.0); MEAN PLT VOLUME 9.3 fl (7.5-11.1); NEUTROPHILS 69.1 % (42.8-82.8); PLATELET COUNT 244 K/MM3 (134-434); RDW 23.3 % (11.6-15.6); WHITE BLOOD COUNT 11.4 K/mm3 (4.0-10.0)
[2016-11-04 08:05] LABS: BASOPHIL 0.9 % (0-2.0); MCH 35.1 pg (25.7-33.7); MEAN CELL VOLUME 100.4 fl (80-96); MEAN PLT VOLUME 8.7 fl (7.5-11.1); NEUTROPHILS 65.6 % (42.8-82.8); PLATELET COUNT 242 K/MM3 (134-434); RDW 23.9 % (11.6-15.6); WHITE BLOOD COUNT 10.8 K/mm3 (4.0-10.0)
[2016-11-04] MEDS: PRENATAL VITAMINS W/ FOLIC ACID TABLET (FP) PO SCH (09:12)
[2016-11-04] MEDS ORDERED: HYDROmorphone HCL CARPU-JECT 1 MG/1 ML DISP.SYRIN ONE (09:15)
[2016-11-04] MEDS ORDERED: FOLIC ACID 1 MG TABLET (FP) PO SCH ×2 (10:00→15:10)
--- NOTE | 2016-11-04 10:37 | PN ---
Progress Note (short form) - Note Progress Note: 23 weeks iup with ? sickle cell crisis , known c/o sickle cell anemia pt states she feels same like yesterday. she refused to take Morphine for pain managemennt, she demands for hydromorphone . she completed 1packcell unit, she refused 2nd packcell unit that was wasted pt is uncooperative. I asked her is she was following with nicker , she said, she sees physicians at [place] off Dr Trivedi for hematology & Dr Clark for care . I asked her if she reports to her physicians about her sickle crisis & admissions at [facility]., I was trying to explain the patient about importance of continuity care, specially during , growth is important . pt burst into spellof anger, started screaming , refused to be seen by me Selected Entries 11/04/16 07:49 Temperature 97.9 F Pulse Rate [ 58 L Right Radial] Blood Pressure 90/50 [Left] Laboratory Tests 11/04/16 06:20 WBC 11.4 H Hct 22.0 L post transfusion CBC today WBC 10.08, h/h 7.6/21.6. Plt 242 p/a 22 weeks size ut FPF FHS 156 bpm in midline by doppler ass 23 weeks , Previous c/s , Sickle cell anemia s/p one pack cell transfusions ?sickle cell crisis Plan transfuse 2nd unit Hematology consult pending Problem List - Problems (1) 23 weeks gestation of Code(s): Z3A.23 - 23 WEEKS GESTATION OF (2) Sickle cell anemia with crisis Code(s): D57.00 - HB-SS DISEASE WITH CRISIS, UNSPECIFIED
[2016-11-04 12:04] VITALS: BMI 25.1
[2016-11-04 13:58] LABS: BILIRUBIN,DIRECT 0.5 mg/dL (0.0-0.2); BILIRUBIN,TOTAL 1.9 mg/dL (0.2-1.0); CALCIUM 7.4 mg/dL (8.5-10.1); CREATININE 0.3 mg/dL (0.55-1.02)
--- NOTE | 2016-11-04 14:24 | PN ---
Physical Exam: SUBJECTIVE: Patient seen and examined. She is complaining of right hip pain and right knee pain. She states that it is sharp , 8/10, constant, no radiation to groin. She states that it is not like her sickle cell crisis pain. She is also complaining of cough. Denies fever, chills, chest pain, SOB, abdominal pain, N/ V. OBJECTIVE: Vital Signs Period Temp Pulse Resp BP Sys/Ornelas Pulse Ox Last 24 Hr 97.6 F-99.1 F 55-88 18-20 90-111/50-70 95-99 GENERAL: The patient is awake, alert, and fully oriented, anxious. HEAD: Normal with no signs of trauma. EYES: extraocular movements intact, sclera anicteric, conjunctiva clear. No ptosis. ENT: moist mucous membranes. NECK: Trachea midline, full range of motion, supple. LUNGS: Breath sounds equal, clear to auscultation bilaterally, no wheezes, no crackles, no accessory muscle use. HEART: Regular rate and rhythm, S1, S2 without murmur, rub or gallop. ABDOMEN: Gravid, nontender, nondistended, normoactive bowel sounds, no guarding , no rebound, no hepatosplenomegaly, no masses. EXTREMITIES: no edema, mild tenderness over external part of right hip. No limited ROM in any joint. NEUROLOGICAL: Normal speech, gait not observed. PSYCH: Normal mood, normal affect. SKIN: Warm, dry, normal turgor, no rashes or lesions noted Genital: Vaginal discharge, white, no skin changes. Laboratory Results - last 24 hr 11/03/16 11/04/16 11/04/16 21:10 06:20 07:45 WBC 11.4 H 10.8 H RBC 2.17 L 2.16 L Hgb 7.6 L 7.6 L Hct 22.0 L 21.6 L MCV 101.0 H 100.4 H MCHC 34.4 35.0 RDW 23.3 H D 23.9 H Plt Count 244 242 MPV 9.3 8.7 Neutrophils % 69.1 65.6 Lymphocytes % 19.8 23.3 Monocytes % 7.8 D 8.2 Eosinophils % 1.9 D 2.0 Basophils % 1.4 0.9 Retic Count Sodium Potassium Chloride Carbon Dioxide Anion Gap BUN Creatinine Random Glucose Calcium Total Bilirubin Direct Bilirubin LD Total Blood Type O POSITIVE Antibody Screen Negative Crossmatch See Detail 11/04/16 11/04/16 09:53 13:44 WBC RBC Hgb Hct MCV MCHC RDW Plt Count MPV Neutrophils % Lymphocytes % Monocytes % Eosinophils % Basophils % Retic Count 12.34 H* D Sodium 142 Potassium 3.9 Chloride 111 H Carbon Dioxide 23 Anion Gap 8 BUN 3 L D Creatinine 0.3 L D Random Glucose 85 D Calcium 7.4 L Total Bilirubin 1.9 H Direct Bilirubin 0.5 H LD Total 404 H Blood Type Antibody Screen Crossmatch Active Medications Generic Name Dose Route Start Last Admin Trade Name Freq PRN Reason Stop Dose Admin Acetaminophen 1,000 mg 11/04/16 10:10 Ofirmev Injection - IVPB 11/05/16 10:11 Q8H PRN FEVER OR PAIN Folic Acid 1 mg 11/04/16 10:00 11/04/16 09:12 Folic Acid - PO 1 mg DAILY CATIA Administration Sodium Chloride 1,000 mls @ 125 mls/hr 11/04/16 00:45 11/04/16 02:11 Normal Saline - IV 125 mls/hr ASDIR CATIA Administration Multivit/Folic Acid/Iron 1 tab 11/04/16 10:00 11/04/16 09:12 Vitamins (Sjr) - PO 1 tab DAILY CATIA Administration ASSESSMENT/PLAN: Patient is a 26 year old (23 weeks) female with a PMHx of sickle cell disease who complained of right hip, right groin, right knee, and back pain for the last two days . Patient was found to have a hemoglobin of 7.3 and RDW of 20.9. Patient is admitted to OBGYN by Nely Nunez. Sickle cell crisis -Hemoglobin 7.3., repeated 7.6. Should be above 9 when . 2 u of PRBC were ordered . She got only one, the other one was wasted. We ordered 1 u PRBC and CBC to f/u. -IV Fluids with Normal Saline -Pain Control Dilaulid was changed for IV tylenol. The pt agreed to change it for safer med in . Vaginal Discharge and Pruritus -we did vaginal exam, the pt had white discharge, consistent with Yeast. She states that recently had bacterial infection and was treated with antibiotics. She finished the full course. We will f/u with obgyn for safe treatment. -U/A -Urine Culture F/E/N -IV NS @100mls/hr -Electrolytes wnl -Regular diet prophylaxis -SCD's for DVT Disposition -Full code -Admitted to OBGYN Problem List - Problems (1) 23 weeks gestation of Code(s): Z3A.23 - 23 WEEKS GESTATION OF (2) Sickle cell anemia with crisis Code(s): D57.00 - HB-SS DISEASE WITH CRISIS, UNSPECIFIED (3) Upper respiratory tract infection Code(s): J06.9 - ACUTE UPPER RESPIRATORY INFECTION, UNSPECIFIED (4) Yeast infection Code(s): B37.9 - CANDIDIASIS, UNSPECIFIED Visit type - Emergency Visit Emergency Visit: Yes ED Registration Date: 11/03/16 Care time: The patient presented to the Emergency Department on the above date and was hospitalized for further evaluation of their emergent condition. - New Patient This patient is new to me today: Yes Date on this admission: 11/04/16 - Critical Care Critical Care patient: No - Discharge Referral Referred to [facility] Med P.C.: No
[2016-11-04] MEDS ORDERED: FOLIC ACID 1 MG TABLET (FP) PO ONE (15:15)
--- NOTE | 2016-11-04 15:24 | PN ---
Teaching Attending Note Name of Resident: Halina Salas ATTENDING PHYSICIAN STATEMENT I saw and evaluated the patient. I reviewed the resident's note and discussed the case with the resident. I agree with the resident's findings and plan as documented. SUBJECTIVE: no fever or chills , at time of evaluation ( 10 am) , was pain free after dilaudid . before that had pain in R hip and R knee. vaginal discharge OBJECTIVE: NAD , MMM CV : RRR Lungs : CTAB ext : no edema , TTP over lateral R hip and no TTP over the Knee or effusions Abd :soft, gravid abd , no TTP Vaginal : Nl hair distribution , white vaginal discharge noted. no cervical tenderness, white cheesy discharge seen on examiner fingers. ASSESSMENT AND PLAN: 26 y/o lady with h/o Sickle cell disease , now 22 week . She presented with pain in R hip/thigh /knee. 1- Acute sickle cell crises: with pain in R hip/thigh/knee. no evidence of effusion in knee . - cont hydration with NS @ 125cc/hr - dc dilaudid as it is class C in . pt agreeable - start tylenol IV and if needed toradol - monitor Retic count, LDH - transfuse 1 unit and repeat CBC. received one unit in ER already 2- vaginal discharge . white cheesy discharge noted on vaginal exam. This finding was discussed with Dr. Goins , who recommended against treatment . - will send vaginal culture 3- : 22 wk per US on 11/03 . with complex cyst seen in [place]. 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 will cont to follow up
[2016-11-04] MEDS: ACETAMINOPHEN 1000 MG/100 ML VIAL (NON FORMULARY) IVPB PRN (15:57)
[2016-11-04 20:57] LABS: RDW 24.7 % (11.6-15.6)
--- NOTE | 2016-11-04 21:20 | CONSULT ---
Consult Consult Specialty:: Hermatology Referred by:: Nely Trujillo MD Reason for Consultation:: Sickle crisis in - History of Present Illness Chief Complaint: R hip and knee pains X several days History of Present Illness: 26 y/o F with Sickle Cell Disease , hx multiple crises during her previous and now current , ,, currently 23 weeks gestation , seen previously here in Sep. for a crisis ; Hgb electropheresis w S level 62% ; A 28% . Pt went to ER yesterday w pain , no hx fevers , mild cough , clear phlegm , no dysuria , pains R hip and knee. Hgb in 7 -8 range despite Tx's so far.Pt started on iv fluids, given dilauded initially but now changed to iv Tylenol , on FA .Pains reportedly slightly better. Bili1.8 , creat WNL , LDH 404 . UA neg except for 1+ blood.Pt being followed by OB at [facility], Dr Trivedi- Hematology last seen 1 month ago. 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 No: Alzheimer's, CVA, Dementia, Migraine, Multiple Sclerosis, Peripheral Neuropathy, Parkinson's, Seizure, Syncope, TIA, Vertigo Pulmonary: No: Asthma, Bronchitis, Cancer, COPD, O2 Dependent, Pneumonia, Previously Intubated, Pulmonary Embolus, Pulmonary Fibrosis, Sleep Apnea, Other Gastrointestinal: Yes: Constipation Hepatobiliary: No: Cirrhosis, Cholelithiasis, Cholecystitis, Choledocholithiasis , Hepatitis A, Hepatitis B, Hepatitis C, Other Renal/: Yes: UTI (in past ) Reproductive: No: Ectopic , Endometriosis, Fibroids, PID, Polycystic Ovary Syndrome, Postmenopausal, Other ...LMP: 05/24/16 ...LMP Comment: EDC 02/28/17 ...: Yes Heme/Onc: Yes: Anemia, Sickle Cell Disease Infectious Disease: Yes: Other (not known) Psych: Yes: Other (declines) Musculoskeletal: Yes: Other (R hip/knee pain) Rheumatology: No: Fibromyalgia, Gout, Lupus, Rheumatoid Arthritis, Sarcoidosis, Vasculitis, Other ENT: No: Allergic Rhinitis, Sinusitis, Other Endocrine: No: Washington's Disease, Jacobo's Disease, Diabetes Insipidus, Diabetes Mellitus, Hyperparathyroidism, Hyperthyroidism, Hypothyroidism, Osteopenia, SIADH, Other Dermatology: No: Basal Cell, Cellulitis, Eczema, Melanoma, Psoriasis, Squamous Cell, Other - Past Surgical History Past Surgical History: Yes: (10/2010) - Alcohol/Substance Use Hx Alcohol Use: No History of Substance Use: reports: None - Smoking History Smoking history: Never smoked Have you smoked in the past 12 months: No Aproximately how many cigarettes per day: 0 Home Medications - Allergies Allergies/Adverse Reactions: Allergies Allergy/AdvReac Type Severity Reaction Status Date / Time No Known Allergies Allergy Verified 11/03/16 14:42 - Home Medications Home Medications: Ambulatory Orders Folic Acid 1 mg PO DAILY 08/10/16 Pnv95/Ferrous Fumarate/FA [ Caplet] 1 each PO DAILY 08/10/16 Family Disease History - Family Disease History Family Disease History: Diabetes: Father (sickle trait), Mother (sickle trait), Other: Father, Mother Review of Systems - Review of Systems Constitutional: reports: Chills. denies: No Symptoms, Diaphoresis, Fever, Lethargy, Loss of Appetite, Malaise, Night Sweats, Unintentional Wgt. Loss, Weakness, Other Eyes: denies: No Symptoms, Blind Spots, Blurred Vision, Double Vision, Eye Pain , Floaters, Photophobia, Recent Change in Vision, Other HENT: denies: No Symptoms, Difficult Swallowing, Ear Discharge, Ear Pain, Epistaxis, Gingival Bleeding, Hearing Loss, Mouth Swelling, Nasal Congestion, Ocular Prosthesis, Throat Pain, Toothache, Ringing in Ears, Other Neck: denies: No Symptoms, Decreased ROM, Lumps, Pain on Movement, Stiffness, Swollen Glands, Tenderness, Other Cardiovascular: denies: No Symptoms, Chest Pain, Edema, Palpitations, Shortness of Breath, Other Respiratory: reports: Cough. denies: No Symptoms, Exercise Intolerance, Hemoptysis, Orthopnea, PND, Snoring, SOB, SOB on Exertion, Wheezing, Other Gastrointestinal: reports: Constipation. denies: No Symptoms, Abdominal Pain, Bloating, Diarrhea, Dysphagia, Indigestion, Melena, Nausea, Rectal Bleeding, Vomiting, Vomiting Blood, Other Genitourinary: reports: No Symptoms Breasts: denies: No Symptoms Reported, See HPI, Breast Implants, Discharge from Nipple, Lumps, Pain, Skin Changes, Other Musculoskeletal: reports: Extremity Pain, Joint Pain Integumentary: denies: No Symptoms, Blister, Bruising, Change in Color, Eczema, Erythema, Incision, Lesions, Lump, Pallor, Pruritis, Rash, Wound, Other Neurological: denies: No Symptoms, Change in LOC, Change in Speech, Confusion, Dizziness, Headache, Incoordination, Numbness, Parasthesia, Pre-Existing Deficit , Seizure, Syncope, Tremors, Unsteady Gait, Weakness, Other Endocrine: denies: No Symptoms, Excessive Sweating, Flushing, Increased Hunger, Increased Thirst, Intolerance to Cold, Intolerance to Heat, Unexplained Weight Gain, Unexplained Weight Loss, Other Hematology/Lymphatic: reports: No Symptoms Psychiatric: denies: No Symptoms, Altered Sleep Pattern, Anxiety, Depression, Hallucinations, Panic, Paranoia, Suicidal, Other Physical Exam Vital Signs: Vital Signs Temperature 98.5 F 11/04/16 14:30 Pulse Rate 60 11/04/16 14:30 Respiratory Rate 18 11/04/16 14:30 Blood Pressure 98/56 11/04/16 14:30 O2 Sat by Pulse Oximetry (%) 95 11/04/16 15:00 Constitutional: Yes: Well Nourished, Calm Eyes: Yes: WNL, Conjunctiva Clear, EOM Intact HENT: Yes: WNL Neck: Yes: WNL, Supple, Trachea Midline Cardiovascular: Yes: WNL, Regular Rate and Rhythm Respiratory: Yes: WNL, Regular, CTA Bilaterally Gastrointestinal: Yes: WNL, Normal Bowel Sounds, Soft (gravid), Other (gravid) Labs: CBC, BMP 11/04/16 09:53 Problem List - Problems (1) 23 weeks gestation of Code(s): Z3A.23 - 23 WEEKS GESTATION OF Assessment/Plan Pt w SCD , 23 wks gestation, sickle crisis , hgb 7-8 range , WBC11.4 plates 244K ; Continue to Tx PC's till hgb > 9 ; avoid opioids if possible ; folic acid , iv fluids , O2 ; Tylenol PRN ; check Retic , CBC daily , no sign of major infection . Pt should f/u with Dr Trivedi -Hematology soon after d/c when crisis resolves. There seems to be no indication for exchange Tx as yet but one can consider prophylactic Tx's during rest of
[2016-11-04 21:21] LABS: MCH 33.7 pg (25.7-33.7); MCHC 35.1 g/dl (32.0-36.0); MEAN CELL VOLUME 96.1 fl (80-96); MEAN PLT VOLUME 9.4 fl (7.5-11.1); PLATELET COUNT 290 K/MM3 (134-434); WHITE BLOOD COUNT 11.2 K/mm3 (4.0-10.0)
[2016-11-05] MEDS: SODIUM CHLORIDE 1,000 ML IV SCH ×2 (02:15→20:19)
[2016-11-05] MEDS: ACETAMINOPHEN 1000 MG/100 ML VIAL (NON FORMULARY) IVPB PRN ×2 (06:12→15:13)
[2016-11-05 06:24] LABS: MCH 34.1 pg (25.7-33.7); MCHC 35.5 g/dl (32.0-36.0); MEAN PLT VOLUME 9.2 fl (7.5-11.1); PLATELET COUNT 305 K/MM3 (134-434); RDW 24.4 % (11.6-15.6)
[2016-11-05] MEDS ORDERED: PT OWN MED DRAWER 7, Y5N ONE (09:54)
[2016-11-05] MEDS: PRENATAL VITAMINS W/ FOLIC ACID TABLET (FP) PO SCH (09:58)
[2016-11-05] MEDS: FOLIC ACID 1 MG TABLET (FP) PO SCH (09:58)
--- NOTE | 2016-11-05 11:13 | PN ---
Progress Note (short form) - Note Progress Note: OB Follow Up pt symptomatically better than before . she still has joint pain . no c/o SOB or chest pain. c/o headache on & off FM are active . no c/o cramps Selected Entries 11/05/16 09:47 Temperature 98.5 F Pulse Rate 61 Blood Pressure 113/67 Laboratory Tests 11/03/16 11/04/16 17:45 06:20 WBC 13.8 H RBC 2.17 L Hgb 7.3 L 7.6 L MCHC 34.4 Laboratory Tests 11/04/16 11/05/16 13:44 06:05 WBC 12.0 H Hgb 9.3 L Hct 26.3 L Plt Count 305 Retic Count 12.34 H* D Dr Lopez's Hematology consult is appreciated Microbiology 11/03/16 17:00 Urine - Urine Clean Catch Urine Culture - Final NO GROWTH OBTAINED Ass 23.4 weeks iup, previous c/section sickle crisis known SCD Plan ct care consider discharge tomorrow Problem List - Problems (1) 23 weeks gestation of Code(s): Z3A.23 - 23 WEEKS GESTATION OF (2) Sickle cell anemia with crisis Code(s): D57.00 - HB-SS DISEASE WITH CRISIS, UNSPECIFIED
--- NOTE | 2016-11-05 13:19 | PN ---
Physical Exam: SUBJECTIVE: Patient seen and examined. The pt is complaining of bloating. She is walking on the hallway and states that it helps. She denies hip pain, fever, chills. OBJECTIVE: Vital Signs Period Temp Pulse Resp BP Sys/Ornelas Pulse Ox Last 24 Hr 97.8 F-98.7 F 58-81 18-20 90-120/50-90 95-95 GENERAL: The patient is awake, alert, and fully oriented, in no acute distress. HEAD: Normal with no signs of trauma. EYES: sclera anicteric, conjunctiva clear. No ptosis. ENT: moist mucous membranes, nasal congestion, oropharynx clear, no erythema. NECK: Trachea midline, supple. LUNGS: Breath sounds equal, clear to auscultation bilaterally, no wheezes, no crackles, no accessory muscle use. HEART: Regular rate and rhythm, S1, S2 without murmur, rub or gallop. ABDOMEN: Gravid, soft, nontender, nondistended, normoactive bowel sounds, no guarding, no rebound. EXTREMITIES: no edema. NEUROLOGICAL: Cranial nerves II through XII grossly intact. Normal speech, nl gait. PSYCH: Normal mood, normal affect. SKIN: Warm, dry, normal turgor, no rashes or lesions noted GENITAL: white vaginal discharge. Laboratory Results - last 24 hr 11/03/16 11/04/16 11/04/16 21:10 09:53 13:44 WBC RBC Hgb Hct MCV MCHC RDW Plt Count MPV Retic Count 12.34 H* D Sodium 142 Potassium 3.9 Chloride 111 H Carbon Dioxide 23 Anion Gap 8 BUN 3 L D Creatinine 0.3 L D Random Glucose 85 D Calcium 7.4 L Total Bilirubin 1.9 H Direct Bilirubin 0.5 H LD Total 404 H Crossmatch See Detail 11/04/16 11/05/16 20:30 06:05 WBC 11.2 H 12.0 H RBC 2.55 L 2.74 L Hgb 8.6 L D 9.3 L Hct 24.5 L 26.3 L MCV 96.1 H 96.0 MCHC 35.1 35.5 RDW 24.7 H 24.4 H Plt Count 290 305 MPV 9.4 9.2 Retic Count Sodium Potassium Chloride Carbon Dioxide Anion Gap BUN Creatinine Random Glucose Calcium Total Bilirubin Direct Bilirubin LD Total Crossmatch Active Medications Generic Name Dose Route Start Last Admin Trade Name Kia PRN Reason Stop Dose Admin Folic Acid 4 mg 11/05/16 10:00 11/05/16 09:58 Folic Acid - PO 4 mg DAILY CATIA Administration Sodium Chloride 1,000 mls @ 125 mls/hr 11/04/16 00:45 11/05/16 02:15 Normal Saline - IV 125 mls/hr ASDIR CATIA Administration Multivit/Folic Acid/Iron 1 tab 11/04/16 10:00 11/05/16 09:58 Vitamins (Sjr) - PO 1 tab DAILY CATIA Administration ASSESSMENT/PLAN: Patient is a 26 year old (23 weeks) female with a PMHx of sickle cell disease who complained of right hip, right groin, right knee, and back pain for the last two days . Patient was found to have a hemoglobin of 7.3 and RDW of 20.9. Patient is admitted to OBGYN by Nely Nunez Sickle cell crisis -Hemoglobin 9.3 today, will recheck CBC in AM. 2 u of PRBC were administered. She improved clinically. -IV Fluids with Normal Saline 125 ml/hr -Pain Control Dilaulid was changed for IV tylenol. The pt agreed to change it for safer med in . -hematology consulted -her obgyn in [facility] [phone] Vaginal Discharge and Pruritus -we did vaginal exam, the pt had white discharge, consistent with Yeast. She states that recently had bacterial infection and was treated with antibiotics. She finished the full course. -U/A-neg -Urine Culture pending -Genital culture-vaginal cx pending F/E/N -IV NS @125mls/hr -Electrolytes wnl -Regular diet DVT prophylaxis -SCD's for DVT -ambulating Disposition -Full code -Admitted to OBGYN Problem List - Problems (1) 23 weeks gestation of Code(s): Z3A.23 - 23 WEEKS GESTATION OF (2) Sickle cell anemia with crisis Code(s): D57.00 - HB-SS DISEASE WITH CRISIS, UNSPECIFIED (3) Upper respiratory tract infection Code(s): J06.9 - ACUTE UPPER RESPIRATORY INFECTION, UNSPECIFIED (4) Yeast infection Code(s): B37.9 - CANDIDIASIS, UNSPECIFIED Visit type - Emergency Visit Emergency Visit: Yes ED Registration Date: 11/03/16 Care time: The patient presented to the Emergency Department on the above date and was hospitalized for further evaluation of their emergent condition. - New Patient This patient is new to me today: No - Critical Care Critical Care patient: No - Discharge Referral Referred to [facility] Med P.C.: No
--- NOTE | 2016-11-05 13:21 | PN ---
Teaching Attending Note Name of Resident: Halina Salas ATTENDING PHYSICIAN STATEMENT I saw and evaluated the patient. I reviewed the resident's note and discussed the case with the resident. I agree with the resident's findings and plan as documented. SUBJECTIVE: no fever or chills , no CP or Abd pain , no SOB. pain in R hip and knee improved . still with vaginal discharge. OBJECTIVE: NAD , MMM CV : RRR Lungs : CTAB ext : no edema , no TTP over hips and thighs Abd :soft, gravid abd , no TTP Vaginal : Nl hair distribution , white vaginal discharge noted. white cheesy discharge seen on examiner fingers. swab taken for culture ASSESSMENT AND PLAN: 26 y/o lady with h/o Sickle cell disease , now 22 week . She presented with pain in R hip/thigh /knee. 1- Acute sickle cell crises: improved. s/p 3 units of RBC. - cont hydration with NS @ 125cc/hr - tylenol or NSAid if needeed - monitor Retic count, LDH tomorrow -repeat Hb in evening 2- vaginal discharge . send vaginal culture 3- : 22 wk per US on 11/03 . with complex cyst seen in [place]. 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 might be able to be dc tomorrow will cont to follow
[2016-11-05 18:23] LABS: MEAN PLT VOLUME 9.5 fl (7.5-11.1)
[2016-11-05 18:27] LABS: MCH 34.1 pg (25.7-33.7); MCHC 35.5 g/dl (32.0-36.0); PLATELET COUNT 274 K/MM3 (134-434); RDW 24.7 % (11.6-15.6)
[2016-11-05 19:59] LABS: ANISOCYTOSIS 3+; HYPOCHROMIA 1+; MICROCYTOSIS 1+; PLATELET ESTIMATE ADEQUATE (NORMAL); POIKILOCYTOSIS 3+; POLYCHROMASIA 1+
[2016-11-05 20:00] LABS: HOWELL-JOLLY BODIES 1+; TARGET CELLS 2+
[2016-11-06] MEDS: SODIUM CHLORIDE 1,000 ML IV SCH ×2 (06:08→08:37)
[2016-11-06] MEDS: ACETAMINOPHEN 1000 MG/100 ML VIAL (NON FORMULARY) IVPB PRN (08:40)
[2016-11-06 08:59] LABS: MCH 34.4 pg (25.7-33.7); MCHC 35.6 g/dl (32.0-36.0); MEAN CELL VOLUME 96.6 fl (80-96); MEAN PLT VOLUME 9.1 fl (7.5-11.1); PLATELET COUNT 269 K/MM3 (134-434); RDW 24.6 % (11.6-15.6); WHITE BLOOD COUNT 10.6 K/mm3 (4.0-10.0)
[2016-11-06] MEDS: FOLIC ACID 1 MG TABLET (FP) PO SCH (10:37)
[2016-11-06] MEDS: PRENATAL VITAMINS W/ FOLIC ACID TABLET (FP) PO SCH (10:38)
[2016-11-06 11:01] VITALS: BP 114/67; PULSE 68; TEMP 98.6
--- NOTE | 2016-11-06 11:50 | DS ---
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 midline. FM are active). No: CVA Tenderness - Left, CVA Tenderness - Right Breast(s): Yes: WNL Musculoskeletal: Yes: Back Pain (reduced now), Other (rt knee & RT hp pain markedly less). No: Joint Stiffness, Joint Swelling Neurological: Yes: WNL ...Motor Strength: WNL Psychiatric: Yes: WNL, Alert, Oriented Labs: CBC, BMP 11/06/16 08:30 11/04/16 09:53 Laboratory Tests 11/04/16 11/06/16 13:44 08:30 Retic Count 12.34 H* D 10.51 H* D Microbiology 11/05/16 11:55 Vaginal Gram Stain - Final 11/03/16 17:00 Urine - Urine Clean Catch Urine Culture - Final NO GROWTH OBTAINED 11/05/16 11:55 Vaginal Genital Culture - Preliminary Laboratory Tests 11/03/16 11/04/16 11/06/16 18:24 09:53 08:30 Total Bilirubin 1.8 H 1.9 H Direct Bilirubin 0.5 H AST 35 D ALT 18 LD Total 404 H 435 H Discharge Summary Reason For Visit: 23 WEEKS GESTATION OF , Hb SS DISEASE W Current Active Problems 23 weeks gestation of (Acute) Sickle cell anemia with crisis (Acute) Yeast infection (Acute) Procedures: Principal: 3 pack cell transfusions Hospital Course: pt recieved Hydramorphone in ER for SCD sickle crisis later on changed to IV Tylenol prn c/o rt knee pain & Rt Hip pain improved admitting h/h 7.3/21.5 . Iv Hydration with N saline post transfusion before discharge h/h9.3/27.4 retic count 10 Hematology consult requested with Dr Lopez . rx po flolic acid 4 mg daily started Condition: Stable - Instructions Diet, Activity, Other Instructions: continue regular diet drink plenty 8-10 glasses of water .. take vit & 4mg folic acid daily follow with your turn out Dr Trivedi & your clinic on Wednesday. Referrals: Nely Trujillo MD [Staff Physician] - (PT IS NOT IN LABOR; IS HIGH RISK AND SHE IS TO GO TO [facility] FOR FOLLOW UP OF SICKLE CELL ;) Disposition: LEFT BEFORE SHANELLE SINGER RM - Home Medications Comprehensive Discharge Medication List: Ambulatory Orders Folic Acid 1 mg PO DAILY 08/10/16 Pnv95/Ferrous Fumarate/FA [ Caplet] 1 each PO DAILY 08/10/16 Folic Acid - 4 mg PO DAILY #30 tablet 11/05/16 Vitamins (Sjr) - 1 tab PO DAILY tablet 11/05/16
--- NOTE | 2016-11-06 14:08 | PN ---
Teaching Attending Note Name of Resident: Halina Salas ATTENDING PHYSICIAN STATEMENT I saw and evaluated the patient. I reviewed the resident's note and discussed the case with the resident. I agree with the resident's findings and plan as documented. SUBJECTIVE: no fever or chills, no abd pain . no hip orleg pain . OBJECTIVE: NAD , MMM CV : RRR Lungs : CTAB ext : no edema , no TTP over hips and thighs Abd :soft, gravid abd , no TTP ASSESSMENT AND PLAN: 26 y/o lady with h/o Sickle cell disease , now 22 week . She presented with pain in R hip/thigh /knee. 1- Acute sickle cell crises: improved. s/p 3 units of RBC. Hb stable , pain resolved. 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 cont folic acid . 2- vaginal discharge . vaginal culture , still pending , to be followed after dc by HOT STRIP FINISHER 3- : 22 wk per US on 11/03 . advised to f/u with her HOT STRIP FINISHER /OB for high risk f/u OK for dc from medicine standpoint
--- NOTE | 2016-11-06 16:12 | PN ---
Physical Exam: SUBJECTIVE: Patient seen and examined. She is feeling good today. Denies pain, N /V, diarrhea, constipation. OBJECTIVE: Vital Signs Period Temp Pulse Resp BP Sys/Ornelas Pulse Ox Last 24 Hr 98.4 F-98.7 F 61-76 16-20 107-121/59-75 92-95 GENERAL: The patient is awake, alert, and fully oriented, in no acute distress. HEAD: Normal with no signs of trauma. EYES: PERRL, extraocular movements intact, sclera anicteric, conjunctiva clear. No ptosis. ENT: Ears normal, nares patent, oropharynx clear without exudates, moist mucous membranes. NECK: Trachea midline, full range of motion, supple. LUNGS: Breath sounds equal, clear to auscultation bilaterally, no wheezes, no crackles, no accessory muscle use. HEART: Regular rate and rhythm, S1, S2 without murmur, rub or gallop. ABDOMEN: Gravid, soft, nontender, nondistended, normoactive bowel sounds, no guarding, no rebound, no hepatosplenomegaly, no masses. EXTREMITIES: 2+ pulses, warm, well-perfused, no edema. NEUROLOGICAL: Cranial nerves II through XII grossly intact. Normal speech, gait not observed. PSYCH: Normal mood, normal affect. SKIN: Warm, dry, normal turgor, no rashes, vitiligo on left side of her face. Laboratory Results - last 24 hr 11/05/16 11/06/16 11/06/16 18:00 08:30 08:30 WBC 12.0 H 10.6 H RBC 2.73 L 2.70 L Hgb 9.3 L 9.3 L Hct 26.2 L 26.1 L MCV 96.0 96.6 H MCHC 35.5 35.6 RDW 24.7 H 24.6 H Plt Count 274 269 MPV 9.5 9.1 Nucleated RBCs 2 H Platelet Estimate Adequate Platelet Comment No clumping noted Polychromasia 1+ Hypochromic-Microcytic 1+ Poikilocytosis 3+ Basophilic Stippling 1+ Anisocytosis 3+ Microcytosis 1+ Sickle Cells 2+ Target Cells 2+ Blake-Mohnton Bodies 1+ Retic Count 10.51 H* D LD Total 11/06/16 08:30 WBC RBC Hgb Hct MCV MCHC RDW Plt Count MPV Nucleated RBCs Platelet Estimate Platelet Comment Polychromasia Hypochromic-Microcytic Poikilocytosis Basophilic Stippling Anisocytosis Microcytosis Sickle Cells Target Cells Blake-Mohnton Bodies Retic Count LD Total 435 H ASSESSMENT/PLAN: Patient is a 26 year old (23 weeks) female with a PMHx of sickle cell disease who complained of right hip, right groin, right knee, and back pain for the last two days . Patient was found to have a hemoglobin of 7.3 and RDW of 20.9. Patient is admitted to OBGYN by Nely Nunez. Sickle cell crisis -Hemoglobin 9.3 today, stable, reticulocyte count 10.5. She improved clinically. 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 -IV Fluids stopped -Pain Control Dilaulid was changed for IV tylenol. The pt agreed to change it for safer med in . -hematology consulted, will f/u as outpatient -her obgyn in [facility] [phone] Vaginal Discharge and Pruritus -we did vaginal exam, the pt had white discharge, consistent with Yeast. She states that recently had bacterial infection and was treated with antibiotics. She finished the full course. -U/A-neg -Genital culture-vaginal negative, no abx recommended by OBGYN F/E/N -NS -Electrolytes wnl -Regular diet DVT prophylaxis -SCD's for DVT -ambulating Disposition -Full code -Admitted to OBGYN Problem List - Problems (1) 23 weeks gestation of Code(s): Z3A.23 - 23 WEEKS GESTATION OF (2) Sickle cell anemia with crisis Code(s): D57.00 - HB-SS DISEASE WITH CRISIS, UNSPECIFIED (3) Upper respiratory tract infection Code(s): J06.9 - ACUTE UPPER RESPIRATORY INFECTION, UNSPECIFIED (4) Yeast infection Code(s): B37.9 - CANDIDIASIS, UNSPECIFIED Visit type - Emergency Visit Emergency Visit: Yes ED Registration Date: 11/03/16 Care time: The patient presented to the Emergency Department on the above date and was hospitalized for further evaluation of their emergent condition. - New Patient This patient is new to me today: No - Critical Care Critical Care patient: No - Discharge Referral Referred to [facility] No
== END 2016-11-06 12:47 | disposition home or self-care (01) | DRG 781 ==
LOC: JER 19:39 → JERBED 20:56 → J5S 11-04 14:19
PROVIDERS: ADMIT Obstetrics & Gynecology; ATTEND Obstetrics & Gynecology
PROC: 30233N1 Transfusion of Nonautologous Red Blood Cells into Peripheral Vein, Percutaneous Approach (ICD-10-PCS; principal; 2016-11-03)
DX: O99.012 Anemia complicating pregnancy, second trimester (principal); D57.00 Hb-SS disease with crisis, unspecified; O26.892 Other specified pregnancy related conditions, second trimester; B37.3 Candidiasis of vulva and vagina; J06.9 Acute upper respiratory infection, unspecified; M25.551 Pain in right hip; M25.561 Pain in right knee; Z3A.23 23 weeks gestation of pregnancy
CPT/HCPCS: 36415; 36430; 76801-TC; 76817-TC; 80048; 80053; 81003; 81015; 82247; 82248; 83615; 85025; 85027; 85044; 86850; 86900; 86901; 86922; 87070; 87086; 87205; 99284-25; P9038; P9058

== ENCOUNTER 2017-08-12 23:07 | Emergency (ER) | payer OTHER ==
[2017-08-13 00:39] VITALS: BMI 23.6
--- NOTE | 2017-08-13 00:47 | PDOC ---
History of Present Illness - History of Present Illness Initial Comments: 08/13/17 01:03 The patient is a 27 year old female, with a significant past medical history of sickle cell anemia, who presents to the emergency department with nasal congestion, runny nose, cough, shortness of breath, ear pain and fatigue for a couple of days. The patient states she has had a stuffy nose and rhinorrhea, along with a productive cough. She states that at the start of her cough, she was producing clear sputum, however, states the sputum was slightly yellow today. She reports feeling a little more short of breath since the onset of symptoms and reports a tightness to her back. She states she normally experiences some back pain with her sickle cell, however, feels this pain is different because it just feels tight. The patient reports feeling a clogged sensation to her left ear. She reports feeling more tired since her onset of symptoms. She states she is prone to bronchitis because of the sickle cell and states she takes whatever they give in the ER when I go. She denies use of any OTC medications. The patient also presents with her 5 month old son who is also a patient for evaluation of cold symptoms. She denies chest pain, headache and dizziness. She denies fever, chills, nausea , vomit, diarrhea and constipation. She denies dysuria, frequency, urgency and hematuria. Allergies: NKDA <Lyla Hernández - Last Filed: 08/13/17 01:02> <Lacie Barr - Last Filed: 08/13/17 02:03> - General Chief Complaint: Weakness Stated Complaint: FATIGUE Time Seen by Provider: 08/13/17 00:45 Past History <Lyla Hernández - Last Filed: 08/13/17 01:02> - Past Medical History Anemia: Yes (SICKLE CELL) Asthma: No Cancer: No Cardiac Disorders: No CVA: No COPD: No CHF: No Dementia: No Diabetes: No GI Disorders: No Disorders: No HTN: No Hypercholesterolemia: No Liver Disease: No Seizures: No Thyroid Disease: No - Surgical History Abdominal Surgery: No Appendectomy: No Cardiac Surgery: No Cholecystectomy: No Lung Surgery: No Neurologic Surgery: No Orthopedic Surgery: No - Immunization History Immunization Up to Date: Yes - Suicide/Smoking/Psychosocial Hx Smoking Status: No Smoking History: Never smoked Have you smoked in the past 12 months: No Number of Cigarettes Smoked Daily: 0 Information on smoking cessation initiated: No Hx Alcohol Use: No Drug/Substance Use Hx: No Substance Use Type: None Hx Substance Use Treatment: No <Lacie Barr - Last Filed: 08/13/17 02:03> - Past Medical History Allergies/Adverse Reactions: Allergies Allergy/AdvReac Type Severity Reaction Status Date / Time No Known Allergies Allergy Verified 08/13/17 00:35 Home Medications: Ambulatory Orders Folic Acid 1 mg PO DAILY 08/10/16 Pnv95/Iron Fum/Folic Acid [ Caplet] 1 each PO DAILY 08/10/16 Folic Acid - 4 mg PO DAILY #30 tablet 11/05/16 Vitamins (Sjr) - 1 tab PO DAILY tablet 11/05/16 Pnv95/Iron Fum/Folic Acid [ Caplet] 1 each PO DAILY 30 Days tablet 07/13 Amox-Tr/K Cl [Augmentin - 875Mg Tablet] 1 tab PO BID #14 tablet 08/13/17 Review of Systems - Review of Systems Able to Perform ROS?: Yes Comments:: 08/13/17 01:03 GENERAL/CONSTITUTIONAL: (+) generalized fatigue. No fever or chills. No weakness. HEAD, EYES, EARS, NOSE AND THROAT: (+) nasal congestion, runny nose. left ear "clogged". No change in vision. No ear discharge. No sore throat. GASTROINTESTINAL: No nausea, vomiting, diarrhea or constipation. GENITOURINARY: No dysuria, frequency, or change in urination. CARDIOVASCULAR: (+) shortness of breath. No chest pain RESPIRATORY: (+) productive cough, No wheezing, or hemoptysis. MUSCULOSKELETAL: (+) back tightness. No joint or muscle swelling or pain. No neck pain. SKIN: No rash NEUROLOGIC: No headache, vertigo, loss of consciousness, or change in strength/ sensation. ENDOCRINE: No increased thirst. No abnormal weight change. HEMATOLOGIC/LYMPHATIC: No anemia, easy bleeding, or history of blood clots. ALLERGIC/IMMUNOLOGIC: No hives or skin allergy. <Lyla Hernández - Last Filed: 08/13/17 01:02> *Physical Exam - Vital Signs Last Vital Signs Temp Pulse Resp BP Pulse Ox 97.7 F 63 14 108/86 93 L 11/17/17 00:35 08/13/17 00:35 08/13/17 00:35 08/13/17 00:35 08/13/17 00:35 - Physical Exam Comments: 08/13/17 01:04 Constitutional: Awake, alert, oriented. No acute distress. Head: Normocephalic. Atraumatic Eyes: PERRL. EOMI. Conjunctivae are not pale. ENT: (+) fluid and redness of left eardrum. Congestion of nares with bogginess. Mucous membranes are moist and intact. Posterior pharynx without exudates or erythema. Uvula midline. Neck: Supple. Full ROM. No lymphadenopathy. Cardiovascular: Regular rate. Regular rhythm. S1, S2 regular. Distal pulses are 2+ and symmetric. Pulmonary/Chest: No evidence of respiratory distress. Clear to auscultation bilaterally No wheezing, rales or rhonchi. Abdominal: Soft and non-distended. There is no tenderness. No rebound, guarding or rigidity. No organomegaly. No palpable masses. Good bowel sounds. Back: No CVA tenderness. Musculoskeletal: No edema. No cyanosis. No clubbing. Full range of motion in all extremities. Nocalf tenderness. Radial/pedal pulses are intact and 2+ bilaterally Skin: Skin is warm and dry. No petechiae. No purpura. Neurological: Alert and oriented to person, place, and time. Cranial nerves II -XII are grossly intact. Normal speech. Strength is grossly symmetric. No sensory deficits. Psychiatric: Good eye contact. Normal interaction, affect and behavior. <Lyla Hernández - Last Filed: 08/13/17 01:02> - Vital Signs Last Vital Signs Temp Pulse Resp BP Pulse Ox 97.7 F 63 14 108/86 93 L 08/13/17 00:35 08/13/17 00:35 08/13/17 00:35 08/13/17 00:35 08/13/17 00:35 <Lacie Barr - Last Filed: 08/13/17 02:03> ED Treatment Course - LABORATORY CBC & Chemistry Diagram: 08/13/17 01:16 08/13/17 01:16 <Lacie Barr - Last Filed: 08/13/17 02:03> Medical Decision Making - Medical Decision Making 08/13/17 00:59 a/p: 27yo female with cough/congestion/ear pain -L otitis media -hx of SCA - will check labs, given sob will obtain xray -flu swab -retic count reassess 08/13/17 01:58 pt with hgb 6.3 and retic of 18. discussed these labs and concern for sickle cell crisis with the patient. States she cannot stay for further eval. States she doens't have children's counselor tonight and has a court appointment at 930a this AM that she cannot miss. States after court she will come back and undergo treatment of SCC. Pt states she will sign out AMA. States she understands all risks associated with AMA, but cannot stay any longer. States she will definitely come back tomorrow. Note: The patient insists on leaving the emergency dept and is signing out against medical advice. The patient understands the risks and complications that may result from the refusal of medical care and admission which includes and permanent disability. The patient has the mental capacity of understanding the risks of refusing care and is capable of making an informed decision. The patient was instructed to return to the emergency department should [] change [] mind regarding medical care or should [] condition worsen. The patient signed the Against Medical Advice form. <Lacie Barr - Last Filed: 08/13/17 02:03> *DC/Admit/Observation/Transfer - Attestations Scribe Attestion: 08/13/17 01:06 Documentation prepared by Lyla Hernández, acting as medical imaging tech for Lacie Barr DO, <Lyla Hernández - Last Filed: 08/13/17 01:02> - Discharge Dispostion Admit: No - Attestations Physician Attestion: 08/13/17 02:02 I, Dr. Lacie Barr DO, attest that this document has been prepared under my direction and personally reviewed by me in its entirety. I further attest, that it accurately reflects all work, treatment, procedures and medical decision -making performed by me. <Lacie Barr - Last Filed: 08/13/17 02:03> Diagnosis at time of Disposition: Sickle cell anemia with crisis, Otitis media - Discharge Dispostion Disposition: AGAINST MEDICAL ADVICE Condition at time of disposition: Unchanged/Unknown - Prescriptions Prescriptions: Amox-Tr/K Cl [Augmentin - 875Mg Tablet] 1 tab PO BID #14 tablet - Referrals Referrals: Rolo Dobson MD [Staff Physician] - - Patient Instructions Printed Discharge Instructions: DI for Sickle Cell Anemia, Pain Crisis -- Adult Additional Instructions: Please come back to the ED tomorrow. You need a blood transfusion and further treatment of your Sickle cell crisis.
[2017-08-13] MEDS ORDERED: AMOX TR/POT CLAV 875MG/125MG TABLETS (FP) PO ONE (00:57)
[2017-08-13] MEDS ORDERED: AMOX TR/POT CLAV 875MG/125MG TABLETS (FP) ONE (01:17)
[2017-08-13 01:25] LABS: BASOPHIL 0.8 % (0-2.0); EOSINOPHIL 6.6 % (0-4.5); MCH 35.8 pg (25.7-33.7); MCHC 36.4 g/dl (32.0-36.0); MEAN CELL VOLUME 98.3 fl (80-96); MEAN PLT VOLUME 8.4 fl (7.5-11.1); NEUTROPHILS 37.8 % (42.8-82.8); PLATELET COUNT 367 K/MM3 (134-434); RDW 26.6 % (11.6-15.6); WHITE BLOOD COUNT 10.4 K/mm3 (4.0-10.0)
[2017-08-13 01:59] LABS: URINE APPEARANCE SLCLOUDY; URINE BILIRUBIN NEGATIVE (NEGATIVE); URINE BLOOD NEGATIVE (NEGATIVE); URINE COLOR YELLOW; URINE GLUCOSE (UA) NEGATIVE (NEGATIVE); URINE KETONE NEGATIVE (NEGATIVE); URINE NITRITE NEGATIVE (NEGATIVE); URINE PROTEIN NEGATIVE (NEGATIVE); URINE UROBILINOGEN NEGATIVE mg/dL (0.2-1.0)
[2017-08-13 02:12] LABS: ALBUMIN 3.8 g/dl (3.4-5.0); ANION GAP 10 (8-16); CALCIUM 8.4 mg/dL (8.5-10.1); CO2 23 mmol/L (21-32); CREATININE 0.6 mg/dL (0.55-1.02); GLUCOSE,RANDOM 75 mg/dL (74-106); SGOT/AST 25 U/L (15-37); SGPT/ALT 23 U/L (12-78)
[2017-08-13 02:14] LABS: ALK PHOS 70 U/L (45-117); BILIRUBIN,TOTAL 1.6 mg/dL (0.2-1.0); TOT PROT 7.9 g/dl (6.4-8.2)
[2017-08-13 05:29] VITALS: BP 100/78; PULSE 79; TEMP 98.7
[2017-08-13 06:36] LABS: ANISOCYTOSIS 3+; HYPOCHROMIA 2+; MACROCYTOSIS 2+; MICROCYTOSIS 2+; POLYCHROMASIA 2+; TARGET CELLS 2+
[2017-08-13 06:37] LABS: POIKILOCYTOSIS 3+
[2017-08-13 09:36] LABS: URINE LEUK ESTERASE Negative (NEGATIVE)
== END 2017-08-13 04:30 | disposition left against medical advice (07) ==
LOC: JER 23:07
DX: D57.1 Sickle-cell disease without crisis (principal); H66.92 Otitis media, unspecified, left ear
CPT/HCPCS: 36415; 80053; 81003; 84703; 85025; 85044; 87804; 99284-25

== ENCOUNTER 2019-08-12 23:41 | Inpatient (IN) | payer OTHER ==
--- NOTE | 2019-08-13 00:41 | PDOC ---
History of Present Illness - General Chief Complaint: Sickle Cell Crisis Stated Complaint: NEED TO BE SEEN - History of Present Illness Initial Comments: The pt is a 29F w/ a history of sickle cell disease who presents for evaluation of 5 days of URI symptoms and back pain not alleviated by marijuana. The pt also reports generalized weakness and malaise. Additionally, she reports 5 days of gradual onset, b/l, waxing/waning DURON that is throbbing, mildly alleviated by marijuana, and not exacerbated by anything that she can identify. She also reports her child a sick contact with some nasal congestion and cough. Denies fevers at home. Denies dysuria/hematuria, diarrhea, blood in stool, abdominal pain, or rash PMH: sickle cell PSH: C/S x2 Meds: Denies SH: +Marijuana; Denies EtOH and tobacco use 08/13/19 01:45 Past History - Past Medical History Allergies/Adverse Reactions: Allergies Allergy/AdvReac Type Severity Reaction Status Date / Time No Known Allergies Allergy Verified 08/12/19 23:52 Home Medications: Ambulatory Orders Folic Acid 1 mg PO DAILY 08/10/16 Vitamins (Sjr) - 1 tab PO DAILY tablet 11/05/16 Pnv95/Iron Fum/Folic Acid [ Caplet] 1 each PO DAILY 30 Days tablet 07/13 Anemia: Yes (SICKLE CELL) Asthma: No Cancer: No Cardiac Disorders: No CVA: No COPD: No CHF: No Dementia: No Diabetes: No GI Disorders: No Disorders: No HTN: No Hypercholesterolemia: No Liver Disease: No Seizures: No Thyroid Disease: No - Surgical History Abdominal Surgery: No Appendectomy: No Cardiac Surgery: No Cholecystectomy: No Lung Surgery: No Neurologic Surgery: No Orthopedic Surgery: No - Immunization History Immunization Up to Date: Yes - Psycho Social/Smoking Cessation Hx Smoking Status: No Smoking History: Never smoked Have you smoked in the past 12 months: No Number of Cigarettes Smoked Daily: 0 Hx Alcohol Use: No Drug/Substance Use Hx: No Substance Use Type: None Hx Substance Use Treatment: No Review of Systems - Review of Systems Able to Perform ROS?: Yes Comments:: GENERAL/CONSTITUTIONAL: +generalized weakness; No fever or chills HEAD, EYES, EARS, NOSE AND THROAT: No change in vision. No change in hearing. No sore throat CARDIOVASCULAR: No chest pain RESPIRATORY: + cough, denies hemoptysis GASTROINTESTINAL: No nausea, vomiting, diarrhea or constipation GENITOURINARY: No dysuria, frequency, or change in urination MUSCULOSKELETAL: +Left lower back pain (reported as typical back pain) SKIN: No rash NEUROLOGIC: + headache; denies vertigo, loss of consciousness, or change in strength/sensation ENDOCRINE: No increased thirst. No abnormal weight change HEMATOLOGIC/LYMPHATIC: +anemia, sickle cell ALLERGIC/IMMUNOLOGIC: No hives or skin allergy 08/13/19 00:41 Is the patient limited Croatian proficient: No *Physical Exam - Vital Signs Last Vital Signs Temp Pulse Resp BP Pulse Ox 97.7 F 70 18 97/45 L 96 08/12/19 23:51 08/12/19 23:51 08/12/19 23:51 08/12/19 23:51 08/12/19 23:51 - Physical Exam Comments: GENERAL: Awake, alert, and oriented to person/place/time, in no acute distress HEAD: No signs of trauma, normocephalic, atraumatic EYES: PERRLA, EOMI, sclera anicteric, conjunctiva clear ENT: Hearing grossly normal, nares patent, oropharynx clear without exudates. Moist mucosa LUNGS: No distress, speaks in full sentences, clear to auscultation bilaterally HEART: Regular rate and rhythm, normal S1 and S2, no murmurs appreciated, peripheral pulses normal and equal bilaterally ABDOMEN: Soft, nontender, normoactive bowel sounds. No guarding, no rebound EXTREMITIES: Normal inspection, Normal range of motion, no edema. No clubbing or cyanosis NEUROLOGICAL: Cranial nerves II through XII grossly intact. Normal speech, normal gait, no focal sensorimotor deficits SKIN: Warm, Dry 08/13/19 00:41 ED Treatment Course - LABORATORY CBC & Chemistry Diagram: 08/13/19 01:11 08/13/19 01:11 Medical Decision Making - Medical Decision Making The pt is a 29F w/ a history of sickle cell disease who presents for evaluation of 5 days of URI symptoms and back pain not alleviated by marijuana w/ generalized malaise/weakness which she describes may be similar to previous onset of SS crises ED Course Labs sent IVF Tylenol for pain CT head Pt anemic w/ elevated retic count Plan for admission and transfusion T/S 08/13/19 01:53 No leukocytosis Anemia to 7.0, retic 13.52% -Plan for transfusion 1u pRBC Lytes unremarkable No SHAYY LFTs wnl Trop I neg Serum Preg neg Dispo: admitted for sickle cell crisis and symptomatic anemia Pt signed out to Krystal Admitting 08/13/19 02:55 Discharge - Discharge Information Problems reviewed: Yes Clinical Impression/Diagnosis: Sickle cell anemia with crisis, Symptomatic anemia Condition: Fair - Admission Yes - Follow up/Referral - Patient Discharge Instructions - Post Discharge Activity
[2019-08-13] MEDS ORDERED: SODIUM CHLORIDE 0.9% 500 ML INFUS.BAG IV ONE (00:44)
--- NOTE | 2019-08-13 00:44 | PDOC ---
Attending Attestation - Resident Resident Name: Angel Pineda - ED Attending Attestation I have performed the following: I have examined & evaluated the patient, The case was reviewed & discussed with the resident, I agree w/resident's findings & plan - HPI HPI: 08/13/19 01:43 see resident hpi - Physicial Exam PE: 08/13/19 01:43 agree with resident exam - Medical Decision Making 08/13/19 01:43 29-year-old female with history of sickle cell disease here for extreme weakness and body pains Labs consistent with sickle cell crisis with anemia, based on history symptomatic Plan for admission, transfusion, IV hydration
[2019-08-13] MEDS ORDERED: ACETAMINOPHEN 325 MG TABLET (FP) ONE (00:55)
[2019-08-13] MEDS ORDERED: ACETAMINOPHEN 325 MG TABLET (FP) PO ONE (00:55)
[2019-08-13 01:30] LABS: BASO % 1.1 % (0-2.0); EOS % 4.2 % (0-4.5); HEMATOCRIT 19.9 % (32.4-45.2); LYMPH % 38.1 % (8-40); MCH 37.2 pg (25.7-33.7); MCHC 34.9 g/dl (32.0-36.0); MEAN CELL VOLUME 106.5 fl (80-96); MEAN PLT VOLUME 9.5 fl (7.5-11.1); NEUT % 45.6 % (42.8-82.8); PLATELET COUNT 360 K/MM3 (134-434); RBC 1.87 M/mm3 (3.60-5.2); RDW 19.3 % (11.6-15.6); WHITE BLOOD COUNT 9.7 K/mm3 (4.0-10.0)
[2019-08-13 02:22] LABS: ALBUMIN 4.4 g/dl (3.4-5.0); ALK PHOS 59 U/L (45-117); ANION GAP 5 MMOL/L (8-16); BILIRUBIN,TOTAL 2.7 mg/dL (0.2-1); BLOOD UREA NITROGEN 7.6 mg/dL (7-18); CALCIUM 8.3 mg/dL (8.5-10.1); CHLORIDE 112 mmol/L (98-107); CO2 24 mmol/L (21-32); CREATININE 0.6 mg/dL (0.55-1.3); GLUCOSE,RANDOM 81 mg/dL (74-106); SGOT/AST 30 U/L (15-37); SGPT/ALT 22 U/L (13-61); SODIUM 141 mmol/L (136-145)
[2019-08-13 02:53] LABS: ANISOCYTOSIS 3+; MACROCYTOSIS 0; PLATELET ESTIMATE NORMAL; SICKELED CELLS 2+
[2019-08-13] MEDS ORDERED: MORPHINE SULFATE 2 MG/ML VIAL IVPUSH PRN (03:17)
[2019-08-13] MEDS ORDERED: ACETAMINOPHEN 325 MG TABLET (FP) PO PRN (03:17)
[2019-08-13] MEDS ORDERED: SODIUM CHLORIDE 1,000 ML IV SCH ×2 (03:30→04:36)
--- NOTE | 2019-08-13 04:39 | PN ---
Teaching Attending Note Name of Resident: Mario Odonnell ATTENDING PHYSICIAN STATEMENT I saw and evaluated the patient. I reviewed the resident's note and discussed the case with the resident. I agree with the resident's findings and plan as documented. SUBJECTIVE: 29year-old -[place] woman with sickle cell disease, no follow-up as an outpatient, complains of 5 days of generalized weakness fatigue, back pain. Patient had multiple episodes of sickle cell crisis reports that stress is the most common precipitating factor. She smokes marijuana and reports that it helps her with her pain. She denied bleeding in her stool or urine or abnormally heavy menses. OBJECTIVE: Last Vital Signs Temp Pulse Resp BP Pulse Ox 97.7 F 56 L 16 102/50 L 97 08/12/19 23:51 08/13/19 01:19 08/13/19 01:19 08/13/19 01:19 08/13/19 01:19 GENERAL: Well developed, well nourished. Awake and alert. No acute distress. HEENT: Normocephalic, atraumatic. PERRLA, EOMI. Visible conjunctival pallor. Sclera are Icteric NECK: Supple. Full ROM. No JVD. Carotid pulses 2+ and symmetric, without bruits. No thyromegaly. No lymphadenopathy. CARDIOVASCULAR: Regular rate and rhythm. No murmurs, rubs, or gallops. Distal pulses are 2+ and symmetric. PULMONARY: No evidence of respiratory distress. Lungs clear to auscultation bilaterally. No wheezing, rales or rhonchi. ABDOMINAL: Soft. Non-tender. Non-distended. No rebound or guarding. No organomegaly. Normoactive bowel sounds. MUSCULOSKELETAL Normal range of motion at all joints. No bony deformities or tenderness. No CVA tenderness. EXTREMITIES: No cyanosis. No clubbing. No edema. No calf tenderness. SKIN: Warm and dry. Normal capillary refill. No rashes. No jaundice. PSYCHIATRIC: Cooperative. Good eye contact. Appropriate mood and affect. Abnormal Lab Results 08/13/19 08/13/19 08/13/19 01:11 01:11 01:11 RBC 1.87 L Hgb 7.0 L Hct 19.9 L D MCV 106.5 H MCH 37.2 H RDW 19.3 H Monocytes % 11.0 H Nucleated RBC % 3 H Retic Count 13.52 H* D Chloride 112 H Anion Gap 5 L Calcium 8.3 L Total Bilirubin 2.7 H Crossmatch 08/13/19 01:55 RBC Hgb Hct MCV MCH RDW Monocytes % Nucleated RBC % Retic Count Chloride Anion Gap Calcium Total Bilirubin Crossmatch See Detail Imaging reviewed ASSESSMENT AND PLAN: 29-year-old woman with acute sickle cell crisis, severe macrocytic anemia with high RDW and high reticulocyte count and reticulocyte index support this diagnosis and that bone marrow is responding appropriately.Do not suspect bleeding at this time. -Total bilirubin, suspect indirect bilirubinemia. Admit to [facility] Aggressive IV fluid hydration Send haptoglobin, LDH Red blood smear Transfuse 1 unit RBC Supplemental oxygen via nasal cannula Counseled patient to avoid smoking and refrain from EtOH use as these might precipitate sickle cell attacks IV opiates for acute pain Folic acid supplementation Hematology evaluation Might benefit from hydroxyurea usage Needs close hematology follow-up as an outpatient
--- NOTE | 2019-08-13 04:49 | HP ---
CHIEF COMPLAINT: back pain, malaise, weakness PCP: none HISTORY OF PRESENT ILLNESS: The patient is a 29 yo f w/ PMH Sickle cell disease who comes into the ED c/o a 5 day history of generalized weakness, fatigue and back pain. The patient states that these symptoms are typical of when she goes into crisis. typically, the patient states that she would smoke marijuana and her symptoms would go away. During this episode, marijuana use did not improve her symptoms, which prompted her to go to the ER for evaluation. Of note, she does endorse one sick contact; her son has had a fever. She also recently finished menstruating. The patient endorses approx. 2 episodes of sickle cell crisis per year, with the last one being in october 2018. 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 ER course was notable for: (1) Hb 7.0, 1unitPRBC ordered by ED staff (2) Reticulocyte count 13.52 (3) Recent Travel: PAST MEDICAL HISTORY: see hPI PAST SURGICAL HISTORY: c section x2 Social History: Smoking: denies Alcohol: denies Drugs: marijuana use Allergies No Known Allergies Allergy (Verified 08/12/19 23:52) HOME MEDICATIONS: Home Medications Medication Instructions Recorded Folic Acid 1 mg PO DAILY 08/10/16 Vitamins (Sjr) - 1 tab PO DAILY tablet 11/05/16 Pnv95/Iron Fum/Folic Acid 1 each PO DAILY 30 Days tablet 11/06/16 [ Caplet] REVIEW OF SYSTEMS negative except for HPI PHYSICAL EXAMINATION Vital Signs - 24 hr 08/12/19 08/13/19 23:51 01:19 Temperature 97.7 F Pulse Rate 70 Pulse Rate [ 56 L Left] Respiratory 18 16 Rate Blood Pressure 97/45 L Blood Pressure 102/50 L [Right Arm] O2 Sat by Pulse 96 97 Oximetry (%) GENERAL: Awake, alert, and fully oriented, in no acute distress. HEAD: Normal with no signs of trauma. EYES: Pupils equal, round and reactive to light, extraocular movements intact, sclera anicteric, conjunctiva clear. No lid lag. LUNGS: Breath sounds equal, clear to auscultation bilaterally. No wheezes, and no crackles. No accessory muscle use. HEART: Regular rate and rhythm, normal S1 and S2. ABDOMEN: Soft, nontender, not distended, normoactive bowel sounds, no guarding, no rebound, no masses. No hepatomegaly or splenomegaly. LOWER EXTREMITIES: 2+ pulses, warm, well-perfused. No calf tenderness. No peripheral edema. NEUROLOGICAL: Cranial nerves II-X intact. Normal speech. PSYCHIATRIC: Cooperative. Good eye contact. Appropriate mood and affect. SKIN: Warm, dry, normal turgor, no rashes or lesions noted, normal capillary refill. Laboratory Results - last 24 hr 08/13/19 08/13/19 08/13/19 01:11 01:11 01:11 WBC 9.7 RBC 1.87 L Hgb 7.0 L Hct 19.9 L D MCV 106.5 H MCH 37.2 H MCHC 34.9 RDW 19.3 H Plt Count 360 MPV 9.5 D Absolute Neuts (auto) 4.4 Neutrophils % 45.6 D Lymphocytes % 38.1 Monocytes % 11.0 H Eosinophils % 4.2 Basophils % 1.1 Nucleated RBC % 3 H Hypochromia 3+ Platelet Estimate Normal Polychromasia 3+ Poikilocytosis 2+ Anisocytosis 3+ Microcytosis 2+ Macrocytosis 0 Sickle Cells 2+ Stomatocytes 2+ Retic Count 13.52 H* D Sodium 141 Potassium 4.0 Chloride 112 H Carbon Dioxide 24 Anion Gap 5 L BUN 7.6 Creatinine 0.6 Est GFR (CKD-EPI)AfAm 143.77 Est GFR (CKD-EPI)NonAf 124.04 Random Glucose 81 Calcium 8.3 L Total Bilirubin 2.7 H AST 30 ALT 22 Alkaline Phosphatase 59 Troponin I < 0.02 Total Protein 8.0 Albumin 4.4 Serum , Qual Blood Type Antibody Screen Crossmatch 08/13/19 08/13/19 08/13/19 01:11 01:11 01:55 WBC RBC Hgb Hct MCV MCH MCHC RDW Plt Count MPV Absolute Neuts (auto) Neutrophils % Lymphocytes % Monocytes % Eosinophils % Basophils % Nucleated RBC % Hypochromia Platelet Estimate Polychromasia Poikilocytosis Anisocytosis Microcytosis Macrocytosis Sickle Cells Stomatocytes Retic Count Sodium Potassium Chloride Carbon Dioxide Anion Gap BUN Creatinine Est GFR (CKD-EPI)AfAm Est GFR (CKD-EPI)NonAf Random Glucose Calcium Total Bilirubin AST ALT Alkaline Phosphatase Troponin I Cancelled Total Protein Albumin Serum , Qual Negative Blood Type O POSITIVE Antibody Screen Negative Crossmatch See Detail ASSESSMENT/PLAN: The patient is a 29 yo f w/ PMH Sickle cell disease who comes into the ED c/o a 5 day history of generalized weakness, fatigue and back pain. She is being admitted for sickle cell crisis #sickle cell crisis likely 2/2 URI/recent menstruation -retic 13.5 -reticulocte index 2.56, responding appropriately -Hb 7 -ED to transfuse 1u PRBC -NS @ 250 -supplemental O2 -will send LDH, haptoglobin, iron supplements -will start folic acid -hematology consult. #FEN -NS @ 250 -lytes wnl, replete PRN -regular diet #prophy -holding AC while patient anemic #dispo -admit med surg Visit type - Emergency Visit Emergency Visit: Yes ED Registration Date: 08/13/19 Care time: The patient presented to the Emergency Department on the above date and was hospitalized for further evaluation of their emergent condition. - New Patient This patient is new to me today: Yes Date on this admission: 08/13/19 - Critical Care Critical Care patient: No ATTENDING PHYSICIAN STATEMENT I saw and evaluated the patient. I reviewed the resident's note and discussed the case with the resident. I agree with the resident's findings and plan as documented. SUBJECTIVE: OBJECTIVE: ASSESSMENT AND PLAN:
[2019-08-13] MEDS ORDERED: MORPHINE SULFATE 2 MG/ML VIAL ONE (07:50)
[2019-08-13 08:00] LABS: PH,URINE 6.5 (5.0-8.0); URINE APPEARANCE CLEAR; URINE BILIRUBIN NEGATIVE (NEGATIVE); URINE COLOR YELLOW; URINE GLUCOSE (UA) NEGATIVE (NEGATIVE); URINE KETONE NEGATIVE (NEGATIVE); URINE LEUK ESTERASE NEGATIVE (NEGATIVE); URINE NITRITE NEGATIVE (NEGATIVE); URINE PROTEIN NEGATIVE (NEGATIVE)
[2019-08-13 08:07] LABS: COCAINE, UR NEGATIVE ng/ml (CUTOFF=300); METHADONE, UR NEGATIVE ng/ml (CUTOFF=300); OPIATES, URI NEGATIVE ng/ml (CUTOFF=300); PHENCYCLIDINE,URINE NEGATIVE ng/ml (CUTOFF=25); URINE AMPHETAMINES NEGATIVE ng/ml (CUTOFF=500); URINE BARBITURATES NEGATIVE ng/ml (CUTOFF=200); URINE BENZODIAZEPINES NEGATIVE ng/ml (CUTOFF=200)
[2019-08-13] MEDS ORDERED: HYDROmorphone HCL CARPU-JECT 2 MG/1 ML DISP.SYRIN IVPB PRN (08:22)
[2019-08-13] MEDS ORDERED: HYDROmorphone HCl 2 MG/ML VIAL ONE (08:34)
[2019-08-13] MEDS: HYDROmorphone HCl 2 MG/ML VIAL IVPB PRN ×3 (08:45→21:02)
[2019-08-13] MEDS: FOLIC ACID 1 MG TABLET (FP) PO SCH (10:08)
[2019-08-13 10:09] LABS: BASO % 1.1 % (0-2.0); EOS % 3.2 % (0-4.5); HEMATOCRIT 20.8 % (32.4-45.2); HEMOGLOBIN 7.5 GM/dL (10.7-15.3); LYMPH % 38.7 % (8-40); MCH 36.1 pg (25.7-33.7); MCHC 35.8 g/dl (32.0-36.0); MEAN CELL VOLUME 100.7 fl (80-96); MEAN PLT VOLUME 8.8 fl (7.5-11.1); MONO % 11.6 % (3.8-10.2); NEUT % 45.4 % (42.8-82.8); PLATELET COUNT 320 K/MM3 (134-434); RBC 2.07 M/mm3 (3.60-5.2); RDW 21.1 % (11.6-15.6); WHITE BLOOD COUNT 7.1 K/mm3 (4.0-10.0)
[2019-08-13 10:36] LABS: BILIRUBIN,DIRECT 0.4 mg/dL (0.0-0.2); BILIRUBIN,TOTAL 2.5 mg/dL (0.2-1); BLOOD UREA NITROGEN 4.6 mg/dL (7-18); CALCIUM 8.3 mg/dL (8.5-10.1); CREATININE 0.5 mg/dL (0.55-1.3); MAGNESIUM 2.3 mg/dL (1.8-2.4); PHOSPHOROUS 3.7 mg/dL (2.5-4.9); TOT PROT 7.2 g/dl (6.4-8.2)
[2019-08-13] MEDS ORDERED: FLU VACCINE QUAD 60 MCG/0.5 ML (MDV 19-20) IM ONE (12:00)
--- NOTE | 2019-08-13 12:51 | PN ---
Progress Note (short form) - Note Progress Note: Patient was admitted last night with acute sickle cell crisis. Patient is was started on morphine for pain control but she does not like and requested hydromorphone I visited the patient patient is comfortable denies any fever chills nausea vomiting she was eating breakfast. And also drinking fluid. Vital Signs Period Temp Pulse Resp BP Sys/Ornelas Pulse Ox Last 24 Hr 97.7 F-98.4 F 56-88 16-20 97-118/45-69 96-98 Physical examination comfortable HEENT NAD neck is supple Lungs clear Abdomen soft nontender normal Alert awake oriented neuro Nonfocal ambulatory walking around Cardiac normal heart sounds. CBC, BMP 08/13/19 09:57 08/13/19 09:57 Assessment and plan Acute sickle cell crisis She is eating well and she is ambulatory at this time will stop IV fluids We will IV morphine and start her back on hydromorphone 1 mg IV every 6 hourly as needed. Her hemoglobin is 7.5 which is okay she was received 1 blood transfusion. Visit type - Emergency Visit Emergency Visit: Yes ED Registration Date: 08/13/19 Care time: The patient presented to the Emergency Department on the above date and was hospitalized for further evaluation of their emergent condition. - New Patient This patient is new to me today: Yes Date on this admission: 08/13/19 - Critical Care Critical Care patient: No - Discharge Referral Referred to [facility] Med P.C.: No
[2019-08-13 13:04] VITALS: BMI 22.9
--- NOTE | 2019-08-13 16:57 | EKG ---
Test Reason : Blood Pressure : / mmHG Vent. Rate : 058 BPM Atrial Rate : 058 BPM P-R Int : 178 ms QRS Dur : 074 ms QT Int : 448 ms P-R-T Axes : -08 031 044 degrees QTc Int : 439 ms POOR DATA QUALITY, INTERPRETATION MAY BE ADVERSELY AFFECTED SINUS BRADYCARDIA WITH OCCASIONAL PREMATURE VENTRICULAR COMPLEXES WHEN COMPARED WITH ECG OF 27-SEP-2016 16:12, PREMATURE VENTRICULAR COMPLEXES ARE NOW PRESENT POOR R WAVE PROGRESSION Confirmed by RINA UQEEN MD ([id number]) on 08/13/2019 4:56:48 PM Referred By: Confirmed By:RINA QUEEN MD
[2019-08-13] MEDS ORDERED: ONDANSETRON 4 MG/2 ML VIAL IVPUSH ONE (18:11)
--- NOTE | 2019-08-13 19:11 | CONSULT ---
Consult Consult Specialty:: Hematology Referred by:: Dr. Gloria Reason for Consultation:: SCD - History of Present Illness Chief Complaint: back pain History of Present Illness: 29F with sickle cell disease (likely Hgb SS) presents with generalized weakness , fatigue and back pain typical of VOC. Also with HAs x a few days but no weakness/numbness. Usually tries to self manage with marijuana but this time pain persisted. Denies fever, SOB, chest pain, URI sx. 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 Not on HU. Gets approximately 2 VOCs per year, last in 10/2018. Hgb 7 on presentation. Received 1 u PRBC. Baseline ~8-9. CXR normal. Reports that back pain is already better. 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 No: Alzheimer's, CVA, Dementia, Migraine, Multiple Sclerosis, Peripheral Neuropathy, Parkinson's, Seizure, Syncope, TIA, Vertigo Cardio/Vascular: No: AFIB, Aneurysm, Aortic Insufficiency, Aortic Stenosis, CAD , CHF, Deep Vein Thrombosis, HTN, Hyperlipdemia, [place], Mitral Insufficiency, Mitral Stenosis, Murmur, Pulmonary Hypertension, Other Gastrointestinal: Yes: Constipation Renal/: Yes: UTI (in past ) ...LMP: 05/24/16 Infectious Disease: Yes: Other (not known) Psych: Yes: Other (declines) Musculoskeletal: Yes: Other (R hip/knee pain) - Past Surgical History Past Surgical History: Yes: (10/2010) - Alcohol/Substance Use Hx Alcohol Use: No History of Substance Use: reports: None - Smoking History Smoking history: Never smoked Have you smoked in the past 12 months: No Aproximately how many cigarettes per day: 0 Home Medications - Allergies Allergies/Adverse Reactions: Allergies Allergy/AdvReac Type Severity Reaction Status Date / Time No Known Allergies Allergy Verified 08/12/19 23:52 - Home Medications Home Medications: Ambulatory Orders Folic Acid 1 mg PO DAILY 08/10/16 Vitamins (Sjr) - 1 tab PO DAILY tablet 11/05/16 Pnv95/Iron Fum/Folic Acid [ Caplet] 1 each PO DAILY 30 Days tablet 07/13 Review of Systems - Review of Systems Constitutional: reports: Weakness Eyes: reports: No Symptoms HENT: reports: No Symptoms Cardiovascular: reports: No Symptoms Respiratory: reports: No Symptoms Gastrointestinal: reports: No Symptoms Neurological: reports: Headache Physical Exam Vital Signs: Vital Signs Temperature 98.5 F 08/13/19 15:12 Pulse Rate 65 08/13/19 15:12 Respiratory Rate 18 08/13/19 15:12 Blood Pressure 107/64 08/13/19 15:12 O2 Sat by Pulse Oximetry (%) 97 08/13/19 11:19 Constitutional: Yes: Well Nourished Eyes: Yes: Conjunctiva Clear Cardiovascular: Yes: Regular Rate and Rhythm Respiratory: Yes: Regular, CTA Bilaterally Gastrointestinal: Yes: Soft. No: Distention, Splenomegaly, Tenderness Edema: No Labs: CBC, BMP 08/13/19 09:57 08/13/19 09:57 Assessment/Plan 29F with sickle cell disease presents with generalized weakness, fatigue and back pain typical of VOC. Improving. Ambulating. C/w pain control, encourage PO hydration, incentive spirometry. CXR normal. CTH pending. Monitor CBC and hemolysis markers. Pt is interested in following with hematology.
[2019-08-14] MEDS: HYDROmorphone HCl 2 MG/ML VIAL IVPB PRN ×3 (06:47→20:01)
[2019-08-14] MEDS: FOLIC ACID 1 MG TABLET (FP) PO SCH (09:58)
[2019-08-14 12:31] LABS: BASO % 0.4 % (0-2.0); EOS % 3.1 % (0-4.5); HEMATOCRIT 23.3 % (32.4-45.2); HEMOGLOBIN 8.1 GM/dL (10.7-15.3); LYMPH % 43.4 % (8-40); MCH 35.4 pg (25.7-33.7); MCHC 34.9 g/dl (32.0-36.0); MEAN CELL VOLUME 101.3 fl (80-96); MEAN PLT VOLUME 9.3 fl (7.5-11.1); MONO % 11.4 % (3.8-10.2); NEUT % 41.7 % (42.8-82.8); PLATELET COUNT 344 K/MM3 (134-434); RDW 21.5 % (11.6-15.6); WHITE BLOOD COUNT 8.7 K/mm3 (4.0-10.0)
[2019-08-14 12:57] LABS: BLOOD UREA NITROGEN 4.6 mg/dL (7-18); CREATININE 0.5 mg/dL (0.55-1.3); POTASSIUM 4.1 mmol/L (3.5-5.1)
[2019-08-14] MEDS ORDERED: SODIUM CHLORIDE 1,000 ML IV SCH (16:30)
--- NOTE | 2019-08-14 17:47 | PN ---
Physical Exam: SUBJECTIVE: Patient seen and examined. She complains that she feels weak and lightheaded. Pain is controlled with Dilaudid. OBJECTIVE: Vital Signs Period Temp Pulse Resp BP Sys/Ornelas Pulse Ox Last 24 Hr 97.8 F-98.8 F 58-68 16-20 105-116/54-71 98 GENERAL: The patient is awake, alert, and fully oriented, in no acute distress. LUNGS: Breath sounds equal, clear to auscultation bilaterally, no wheezes, no crackles, no accessory muscle use. HEART: Regular rate and rhythm, S1, S2 without murmur, rub or gallop. ABDOMEN: Soft, nontender, nondistended, normoactive bowel sounds, no guarding, no rebound, no hepatosplenomegaly, no masses. EXTREMITIES: 2+ pulses, warm, well-perfused, no edema. Laboratory Results - last 24 hr 08/14/19 08/14/19 12:10 12:10 WBC 8.7 RBC 2.30 L Hgb 8.1 L Hct 23.3 L MCV 101.3 H MCH 35.4 H MCHC 34.9 RDW 21.5 H Plt Count 344 MPV 9.3 Absolute Neuts (auto) 3.6 Neutrophils % 41.7 L Lymphocytes % 43.4 H Monocytes % 11.4 H Eosinophils % 3.1 Basophils % 0.4 Nucleated RBC % 2 H Sodium 136 Potassium 4.1 Chloride 106 Carbon Dioxide 25 Anion Gap 6 L BUN 4.6 L Creatinine 0.5 L Est GFR (CKD-EPI)AfAm 152.65 Est GFR (CKD-EPI)NonAf 131.71 Random Glucose 89 Calcium 9.0 LD Total 564 H Active Medications Generic Name Dose Route Start Last Admin Trade Name Freq PRN Reason Stop Dose Admin Acetaminophen 650 mg 08/13/19 03:17 Tylenol - PO Q6H PRN PAIN LEVEL 1-5 Folic Acid 1 mg 08/13/19 10:00 08/14/19 09:58 Folic Acid - PO 1 mg DAILY CATIA Administration Hydromorphone HCl 1.5 mg 08/14/19 16:21 Dilaudid Vial - IVPB Q3H PRN PAIN LEVEL 6-10 Sodium Chloride 1,000 mls @ 100 mls/hr 08/14/19 16:30 08/14/19 16:32 Normal Saline - IV 100 mls/hr ASDIR CATIA Administration ASSESSMENT/PLAN: This is a 29 year old woman with a history of sickle cell disease who presented to the ED with generalized weakness, fatigue, and back pain. 1. Sickle cell vaso-occlusive crisis - Hemoglobin improved after 1 unit PRBCs transfused - Reticulocyte count pending - LDH elevated - Continue IV fluid, folic acid, Dilaudid as needed for pain Visit type - Emergency Visit Emergency Visit: Yes ED Registration Date: 08/13/19 Care time: The patient presented to the Emergency Department on the above date and was hospitalized for further evaluation of their emergent condition. - New Patient This patient is new to me today: Yes Date on this admission: 08/14/19 - Critical Care Critical Care patient: No - Discharge Referral Referred to [facility] Med P.C.: Yes
[2019-08-14] MEDS: ENOXAPARIN NA (PORCINE) 40 MG/0.4 ML DISP.SYRIN SQ SCH (20:11)
--- NOTE | 2019-08-14 22:14 | PN ---
Progress Note (short form) - Note Progress Note: Patient seen and examined c/o back pain afvss Cor: RSR, No murmurs, No gallops Lungs: Clear to P&A Abd: Soft, Normal bowel sounds, No organomegaly Ext:No significant edema labs/meds reviewed a/p 29F with sickle cell disease presents with generalized weakness, fatigue and back pain typical of VOC. continue hydration/pain control/folic acid/spirometry/dvt prophylaxis was transfused 1 unit PRBCs for hgb 7 on 07/13 monitor cbc no indication for transfusion at this time
[2019-08-15] MEDS: SODIUM CHLORIDE 1,000 ML IV SCH ×3 (00:37→11:59)
[2019-08-15] MEDS: HYDROmorphone HCl 2 MG/ML VIAL IVPB PRN ×4 (00:38→18:22)
--- NOTE | 2019-08-15 08:09 | PN ---
Progress Note, Physician Chief Complaint: c/o right rib pain and lower back/hip pain History of Present Illness: The patient is a 29 yo f w/ PMH Sickle cell disease who comes into the ED c/o a 5 day history of generalized weakness, fatigue and back pain. The patient states that these symptoms are typical of when she goes into crisis. typically, the patient states that she would smoke marijuana and her symptoms would go away. During this episode, marijuana use did not improve her symptoms, which prompted her to go to the ER for evaluation. Of note, she does endorse one sick contact; her son has had a fever. She also recently finished menstruating. The patient endorses approx. 2 episodes of sickle cell crisis per year, with the last one being in october 2018. 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 - Current Medication List Current Medications: Active Medications Acetaminophen (Tylenol -) 650 mg PO Q6H PRN PRN Reason: PAIN LEVEL 1-5 Enoxaparin Sodium (Lovenox -) 40 mg SQ DAILY [facility] Last Admin: 08/14/19 20:11 Dose: Not Given Folic Acid (Folic Acid -) 1 mg PO DAILY [facility] Last Admin: 08/14/19 09:58 Dose: 1 mg Hydromorphone HCl (Dilaudid Vial -) 1.5 mg IVPB Q3H PRN PRN Reason: PAIN LEVEL 6-10 Last Admin: 08/15/19 04:52 Dose: 1.5 mg Sodium Chloride (Normal Saline -) 1,000 mls @ 125 mls/hr IV ASDIR [facility] Last Admin: 08/15/19 02:27 Dose: 125 mls/hr - Objective Vital Signs: Vital Signs Temperature 98.5 F 08/15/19 02:00 Pulse Rate 61 08/15/19 02:00 Respiratory Rate 20 08/15/19 02:00 Blood Pressure 107/59 L 08/15/19 02:00 O2 Sat by Pulse Oximetry (%) 96 08/14/19 21:00 Constitutional: Yes: Well Nourished, No Distress, Anxious Eyes: Yes: WNL, Conjunctiva Clear HENT: Yes: WNL, Atraumatic, Normocephalic Neck: Yes: WNL, Supple, Trachea Midline Cardiovascular: Yes: WNL, Regular Rate and Rhythm Respiratory: Yes: WNL, Regular, CTA Bilaterally Gastrointestinal: Yes: WNL, Normal Bowel Sounds ...Rectal Exam: Yes: Deferred Breast(s): Yes: WNL Musculoskeletal: Yes: Back Pain, Other (palpable nodule to right hip/buttock area) Extremities: Yes: WNL Edema: No Peripheral Pulses WNL: Yes Peripheral Pulses: Left Radial: 2+, Right Radial: 2+, Left Doralis Pedis: 2+, Right Dorsalis Pedis: 2+, Left Femoral: 2+, Right Femoral: 2+ Integumentary: Yes: WNL Neurological: Yes: WNL, Alert, Oriented ...Motor Strength: WNL Psychiatric: Yes: WNL Labs: CBC, BMP 08/14/19 12:10 08/14/19 12:10 - ....Imaging Cat Scan: Report Reviewed (HCT: no acute pathology) Problem List - Problems (1) Headache Assessment/Plan: HCT done with no acute pathology fiorecet q6h prn pain Code(s): R51 - HEADACHE (2) Prophylactic measure Assessment/Plan: FEN IVF regular diet monitor electrolytes DVT heparin sq Dispo maintain as in patient full code discharge planning Code(s): Z29.9 - ENCOUNTER FOR PROPHYLACTIC MEASURES, UNSPECIFIED (3) Sickle cell anemia with crisis Assessment/Plan: seen by hematology, appreciate consultation 1 unit of PRBC given on admission Hgb 7.2 today Retic 7.5, haptoglobin pending additional unit to be transfused c/w folic acid, iron continue to monitor CBC Code(s): D57.00 - HB-SS DISEASE WITH CRISIS, UNSPECIFIED (4) Symptomatic anemia Assessment/Plan: 1u PRBC ordered Code(s): D64.9 - ANEMIA, UNSPECIFIED Visit type - Emergency Visit Emergency Visit: Yes ED Registration Date: 08/13/19 Care time: The patient presented to the Emergency Department on the above date and was hospitalized for further evaluation of their emergent condition. - New Patient This patient is new to me today: Yes Date on this admission: 08/15/19 - Critical Care Critical Care patient: No - Discharge Referral Referred to [facility] Med P.C.: No
[2019-08-15 08:38] LABS: BASO % 0.9 % (0-2.0); EOS % 2.9 % (0-4.5); HEMATOCRIT 20.2 % (32.4-45.2); HEMOGLOBIN 7.2 GM/dL (10.7-15.3); LYMPH % 40.3 % (8-40); MCH 35.3 pg (25.7-33.7); MCHC 35.7 g/dl (32.0-36.0); MEAN CELL VOLUME 98.8 fl (80-96); MEAN PLT VOLUME 9.7 fl (7.5-11.1); MONO % 13.5 % (3.8-10.2); NEUT % 42.4 % (42.8-82.8); PLATELET COUNT 317 K/MM3 (134-434); RBC 2.05 M/mm3 (3.60-5.2); RDW 21.3 % (11.6-15.6); RETICULOCYTES 7.52 % (0.5-1.5); WHITE BLOOD COUNT 6.5 K/mm3 (4.0-10.0)
[2019-08-15 09:12] LABS: BLOOD UREA NITROGEN 4.2 mg/dL (7-18); CALCIUM 8.6 mg/dL (8.5-10.1); CREATININE 0.4 mg/dL (0.55-1.3); POTASSIUM 4.5 mmol/L (3.5-5.1)
[2019-08-15] MEDS ORDERED: ACETAMINOPHEN/CAFFEINE/BUTALBITAL 1 TAB PO PRN (09:57)
[2019-08-15] MEDS ORDERED: LIDOCAINE 5% TOPICAL PATCH TP SCH (10:00)
[2019-08-15] MEDS: FOLIC ACID 1 MG TABLET (FP) PO SCH (10:07)
[2019-08-15] MEDS: ENOXAPARIN NA (PORCINE) 40 MG/0.4 ML DISP.SYRIN SQ SCH (12:02)
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
[2019-08-15 19:12] LABS: BASO % 1.2 % (0-2.0); EOS % 3.3 % (0-4.5); HEMATOCRIT 22.1 % (32.4-45.2); HEMOGLOBIN 7.7 GM/dL (10.7-15.3); LYMPH % 41.8 % (8-40); MCH 34.8 pg (25.7-33.7); MCHC 35.1 g/dl (32.0-36.0); MEAN CELL VOLUME 99.3 fl (80-96); MONO % 15.9 % (3.8-10.2); NEUT % 37.8 % (42.8-82.8); RBC 2.22 M/mm3 (3.60-5.2); RDW 21.8 % (11.6-15.6); WHITE BLOOD COUNT 7.7 K/mm3 (4.0-10.0)
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
[2019-08-15 19:52] VITALS: BP 112/56; PULSE 65; TEMP 98.6
[2019-08-15 19:56] LABS: PLATELET ESTIMATE NORMAL
[2019-08-15 19:57] LABS: PLATELET COUNT 343 K/MM3 (134-434)
[2019-08-15] MEDS ORDERED: LIDOCAINE PATCH REMOVAL MC SCH (22:00)
== END 2019-08-15 21:06 | disposition home or self-care (01) | DRG 812 ==
LOC: JER 23:41 → JERBED 08-13 01:57 → J5S 08-13 10:42
PROVIDERS: ADMIT Internal Medicine; ATTEND Nurse Practitioner Acute Care
PROC: 30233N1 Transfusion of Nonautologous Red Blood Cells into Peripheral Vein, Percutaneous Approach (ICD-10-PCS; principal; 2019-08-13)
DX: D57.00 Hb-SS disease with crisis, unspecified (principal); F12.90 Cannabis use, unspecified, uncomplicated; R51 Headache; M54.9 Dorsalgia, unspecified; J06.9 Acute upper respiratory infection, unspecified; M25.561 Pain in right knee; M25.551 Pain in right hip; F41.9 Anxiety disorder, unspecified
CPT/HCPCS: 36415; 36430; 36511; 70450-TC; 71046-TC-FY; 80048; 80053; 80307; 81003; 82248; 83010; 83615; 83735; 84100; 84484; 84703; 85025; 85044; 86850; 86900; 86901; 86922; 93005; 93010; 99285-25; J7030; P9038; P9058

== ENCOUNTER 2021-05-09 09:59 | Emergency (ER) | payer OTHER ==
[2021-05-09 10:17] VITALS: BP 117/74; PULSE 75; BMI 26.6
[2021-05-09 10:21] VITALS: TEMP 98.2
[2021-05-09 11:31] LABS: EPI CELLS 9 /uL (0-25.1); HYALINE CASTS 2 /uL (0-3.1); URINE APPEARANCE TURBID; URINE BACTERIA 488 /uL (0-1359); URINE BILIRUBIN 1+ (NEGATIVE); URINE COLOR DK YELLOW; URINE GLUCOSE (UA) NEGATIVE (NEGATIVE); URINE KETONE NEGATIVE (NEGATIVE); URINE LEUK ESTERASE 3+ (NEGATIVE); URINE NITRITE NEGATIVE (NEGATIVE); URINE PROTEIN 3+ (NEGATIVE); URINE RBC 121 /uL (0-23.9); URINE WBC 7845 /uL (0-25.8)
[2021-05-09 11:32] LABS: HCG,QUALITATIVE URINE Negative
[2021-05-09] MEDS ORDERED: AZITHROMYCIN 500 MG TABLET PO ONE (11:57)
[2021-05-09] MEDS ORDERED: AZITHROMYCIN 250 MG TABLET ONE (12:00)
== END 2021-05-09 12:10 | disposition home or self-care (01) ==
LOC: JERFT 09:59
DX: N30.00 Acute cystitis without hematuria (principal)
CPT/HCPCS: 36415; 81003; 84703; 87086; 87186; 87491; 87591; 99284-25

== ENCOUNTER 2021-06-22 01:15 | Inpatient (IN) | payer OTHER ==
[2021-06-22] MEDS ORDERED: HYDROmorphone HCL CARPU-JECT 2 MG/1 ML DISP.SYRIN IVPUSH ONE ×2 (01:43→05:59)
[2021-06-22] MEDS ORDERED: LACTATED RINGERS SOLUTION 1000 ML INFUS.BAG IV ONE (01:44)
[2021-06-22 01:58] VITALS: BMI 25.1
[2021-06-22] MEDS ORDERED: HYDROmorphone HCl 2 MG/ML VIAL ONE ×2 (02:17→07:26)
[2021-06-22 03:15] LABS: HEMATOCRIT 18.6 % (32.4-45.2); MCH 33.6 pg (25.7-33.7); MCHC 35.7 g/dl (32.0-36.0); MEAN CELL VOLUME 94.1 fl (80-96); MEAN PLT VOLUME 9.1 fl (7.5-11.1); PLATELET COUNT 327 10^3/uL (134-434); RBC 1.98 M/mm3 (3.60-5.2); RDW 29.4 % (11.6-15.6); WHITE BLOOD COUNT 10.1 K/mm3 (4.0-10.0)
[2021-06-22 03:16] LABS: HEMOGLOBIN 6.7 GM/dL (10.7-15.3)
[2021-06-22 03:23] LABS: INR 1.07 (0.83-1.09); PROTHROMBIN TIME (PATIENT) 13.2 SEC (9.7-13.0)
[2021-06-22 03:28] LABS: CHLORIDE 111 mmol/L (98-107); SODIUM 139 mmol/L (136-145)
[2021-06-22 03:30] LABS: ALBUMIN 3.7 g/dl (3.4-5.0); CALCIUM 8.2 mg/dL (8.5-10.1)
[2021-06-22 03:31] LABS: ANION GAP 6 MMOL/L (8-16); CO2 22 mmol/L (21-32); GLUCOSE,RANDOM 79 mg/dL (74-106); LIPASE 62 U/L (73-393)
[2021-06-22 03:33] LABS: SGOT/AST 36 U/L (15-37); SGPT/ALT 26 U/L (13-61)
[2021-06-22 03:34] LABS: CREATININE 0.6 mg/dL (0.55-1.3)
[2021-06-22 03:35] LABS: BILIRUBIN,TOTAL 1.8 mg/dL (0.2-1); TOT PROT 7.4 g/dl (6.4-8.2)
[2021-06-22 03:36] LABS: ALK PHOS 65 U/L (45-117)
[2021-06-22 04:34] LABS: ANISOCYTOSIS 3+; MACROCYTOSIS 1+; PLATELET ESTIMATE NORMAL; SICKELED CELLS 2+
[2021-06-22] MEDS: SODIUM CHLORIDE 1,000 ML IV SCH (06:45)
[2021-06-22] MEDS: HYDROmorphone HCl 2 MG/ML VIAL IVPUSH PRN ×3 (07:30→21:20)
[2021-06-22] MEDS ORDERED: ENOXAPARIN NA (PORCINE) 40 MG/0.4 ML DISP.SYRIN SQ ONE (09:16)
[2021-06-22] MEDS ORDERED: FOLIC ACID 1 MG TABLET (FP) ONE (09:16)
[2021-06-22] MEDS: FOLIC ACID 1 MG TABLET (FP) PO SCH (09:24)
[2021-06-22] MEDS: ENOXAPARIN NA (PORCINE) 40 MG/0.4 ML DISP.SYRIN SQ SCH (09:24)
[2021-06-22 13:18] LABS: HEMATOCRIT 18.4 % (32.4-45.2); MCH 34.1 pg (25.7-33.7); MCHC 36.3 g/dl (32.0-36.0); MEAN PLT VOLUME 9.6 fl (7.5-11.1); PLATELET COUNT 333 10^3/uL (134-434); RBC 1.96 M/mm3 (3.60-5.2); RDW 28.3 % (11.6-15.6); WHITE BLOOD COUNT 8.3 K/mm3 (4.0-10.0)
[2021-06-22 13:24] LABS: HEMOGLOBIN 6.7 GM/dL (10.7-15.3)
[2021-06-22 13:48] LABS: ALBUMIN 3.5 g/dl (3.4-5.0); CALCIUM 8.3 mg/dL (8.5-10.1)
[2021-06-22 13:52] LABS: CREATININE 0.5 mg/dL (0.55-1.3)
[2021-06-22 13:54] LABS: TOT PROT 7.2 g/dl (6.4-8.2)
[2021-06-23] MEDS ORDERED: ONDANSETRON 4 MG/2 ML VIAL IVPUSH ONE (00:51)
[2021-06-23] MEDS: SODIUM CHLORIDE 1,000 ML IV SCH ×3 (02:09→21:13)
[2021-06-23] MEDS: HYDROmorphone HCl 2 MG/ML VIAL IVPUSH PRN ×3 (08:10→19:57)
[2021-06-23 08:38] LABS: BASO % 1.2 % (0-2.0); EOS % 5.8 % (0-4.5); HEMATOCRIT 23.5 % (32.4-45.2); HEMOGLOBIN 8.3 GM/dL (10.7-15.3); LYMPH % 31.9 % (8-40); MCH 32.4 pg (25.7-33.7); MCHC 35.4 g/dl (32.0-36.0); MEAN CELL VOLUME 91.7 fl (80-96); MEAN PLT VOLUME 10.1 fl (7.5-11.1); MONO % 11.5 % (3.8-10.2); NEUT % 49.6 % (42.8-82.8); PLATELET COUNT 332 10^3/uL (134-434); RBC 2.57 M/mm3 (3.60-5.2); RDW 26.2 % (11.6-15.6); WHITE BLOOD COUNT 8.2 K/mm3 (4.0-10.0)
[2021-06-23 09:11] LABS: ALBUMIN 3.6 g/dl (3.4-5.0); BLOOD UREA NITROGEN 4.6 mg/dL (7-18); CALCIUM 8.2 mg/dL (8.5-10.1); MAGNESIUM 2.1 mg/dL (1.8-2.4)
[2021-06-23 09:14] LABS: CREATININE 0.5 mg/dL (0.55-1.3)
[2021-06-23 09:15] LABS: BILIRUBIN,TOTAL 2.9 mg/dL (0.2-1); TOT PROT 7.3 g/dl (6.4-8.2)
[2021-06-23] MEDS: FOLIC ACID 1 MG TABLET (FP) PO SCH (09:23)
[2021-06-23] MEDS: ENOXAPARIN NA (PORCINE) 40 MG/0.4 ML DISP.SYRIN SQ SCH (09:24)
[2021-06-23] MEDS ORDERED: oxyCODONE HCL 5 MG TABLET PO PRN (10:40)
[2021-06-24] MEDS: SODIUM CHLORIDE 1,000 ML IV SCH (05:37)
[2021-06-24] MEDS: HYDROmorphone HCl 2 MG/ML VIAL IVPUSH PRN ×3 (05:38→19:55)
[2021-06-24] MEDS: FOLIC ACID 1 MG TABLET (FP) PO SCH (09:00)
[2021-06-24] MEDS: ENOXAPARIN NA (PORCINE) 40 MG/0.4 ML DISP.SYRIN SQ SCH (09:00)
[2021-06-24 09:51] LABS: BASO % 1.1 % (0-2.0); EOS % 5.9 % (0-4.5); HEMATOCRIT 22.6 % (32.4-45.2); HEMOGLOBIN 7.9 GM/dL (10.7-15.3); LYMPH % 32.4 % (8-40); MCH 32.2 pg (25.7-33.7); MCHC 35.1 g/dl (32.0-36.0); MEAN CELL VOLUME 91.8 fl (80-96); MEAN PLT VOLUME 9.8 fl (7.5-11.1); MONO % 10.8 % (3.8-10.2); NEUT % 49.8 % (42.8-82.8); PLATELET COUNT 302 10^3/uL (134-434); RBC 2.46 M/mm3 (3.60-5.2); WHITE BLOOD COUNT 8.9 K/mm3 (4.0-10.0)
[2021-06-24 10:01] LABS: CALCIUM 8.3 mg/dL (8.5-10.1)
[2021-06-24 10:02] LABS: ALBUMIN 3.5 g/dl (3.4-5.0)
[2021-06-24 10:03] LABS: BLOOD UREA NITROGEN 3.6 mg/dL (7-18)
[2021-06-24 10:05] LABS: CREATININE 0.5 mg/dL (0.55-1.3)
[2021-06-24 10:06] LABS: BILIRUBIN,TOTAL 2.4 mg/dL (0.2-1); TOT PROT 7.1 g/dl (6.4-8.2)
[2021-06-25] MEDS: HYDROmorphone HCl 2 MG/ML VIAL IVPUSH PRN ×2 (06:21→12:20)
[2021-06-25] MEDS: SODIUM CHLORIDE 1,000 ML IV SCH (06:57)
[2021-06-25 07:22] VITALS: BP 137/79; PULSE 76; TEMP 97.9
[2021-06-25 07:48] LABS: BASO % 0.6 % (0-2.0); EOS % 10.2 % (0-4.5); HEMATOCRIT 21.7 % (32.4-45.2); HEMOGLOBIN 7.9 GM/dL (10.7-15.3); LYMPH % 21.9 % (8-40); MCH 32.4 pg (25.7-33.7); MCHC 36.2 g/dl (32.0-36.0); MEAN CELL VOLUME 89.5 fl (80-96); MEAN PLT VOLUME 9.6 fl (7.5-11.1); MONO % 12.7 % (3.8-10.2); NEUT % 54.6 % (42.8-82.8); PLATELET COUNT 281 10^3/uL (134-434); RBC 2.42 M/mm3 (3.60-5.2); RDW 27.2 % (11.6-15.6); WHITE BLOOD COUNT 9.3 K/mm3 (4.0-10.0)
[2021-06-25 08:13] LABS: ALBUMIN 3.6 g/dl (3.4-5.0); BLOOD UREA NITROGEN 3.3 mg/dL (7-18); CALCIUM 8.4 mg/dL (8.5-10.1); MAGNESIUM 1.9 mg/dL (1.8-2.4)
[2021-06-25 08:16] LABS: CREATININE 0.5 mg/dL (0.55-1.3)
[2021-06-25 08:18] LABS: BILIRUBIN,TOTAL 3.5 mg/dL (0.2-1); TOT PROT 7.3 g/dl (6.4-8.2)
[2021-06-25] MEDS: FOLIC ACID 1 MG TABLET (FP) PO SCH (09:59)
[2021-06-25] MEDS: ENOXAPARIN NA (PORCINE) 40 MG/0.4 ML DISP.SYRIN SQ SCH (09:59)
[2021-06-25] MEDS: oxyCODONE HCL 5 MG TABLET PO PRN ×2 (10:04→21:33)
[2021-06-25 10:37] LABS: ANISOCYTOSIS 1+; MACROCYTOSIS 0; OVALOCYTE 1+; PLATELET ESTIMATE NORMAL; TARGET CELLS 2+
[2021-06-25] MEDS ORDERED: ACETAMINOPHEN/CAFFEINE/BUTALBITAL 1 TAB PO PRN (11:06)
[2021-06-25] MEDS ORDERED: ONDANSETRON *ODT* 4 MG TABLET SL PRN (11:06)
[2021-06-25] MEDS: HYDROmorphone HCl 2 MG/ML VIAL SQ PRN ×2 (14:12→18:08)
[2021-06-25] MEDS ORDERED: SENNOSIDES 8.6MG TABLET (FP) PO PRN (16:39)
[2021-06-25] MEDS: DOCUSATE SODIUM 100 MG CAPSULE (FP) PO SCH (21:33)
[2021-06-25] MEDS ORDERED: HYDROmorphone HCl 2 MG/ML VIAL IVPB ONE (22:33)
[2021-06-26] MEDS: DOCUSATE SODIUM 100 MG CAPSULE (FP) PO SCH ×2 (06:00→13:45)
[2021-06-26] MEDS: HYDROmorphone HCl 2 MG/ML VIAL SQ PRN ×2 (06:54→13:46)
[2021-06-26 08:58] LABS: BASO % 2.8 % (0-2.0); EOS % 10.2 % (0-4.5); HEMATOCRIT 21.7 % (32.4-45.2); HEMOGLOBIN 7.6 GM/dL (10.7-15.3); LYMPH % 30.7 % (8-40); MCH 32.2 pg (25.7-33.7); MCHC 34.9 g/dl (32.0-36.0); MEAN CELL VOLUME 92.1 fl (80-96); MEAN PLT VOLUME 10.1 fl (7.5-11.1); MONO % 16.1 % (3.8-10.2); NEUT % 40.2 % (42.8-82.8); PLATELET COUNT 271 10^3/uL (134-434); RBC 2.36 M/mm3 (3.60-5.2); RDW 27.2 % (11.6-15.6); WHITE BLOOD COUNT 7.6 K/mm3 (4.0-10.0)
[2021-06-26] MEDS: FOLIC ACID 1 MG TABLET (FP) PO SCH (09:06)
[2021-06-26] MEDS: ENOXAPARIN NA (PORCINE) 40 MG/0.4 ML DISP.SYRIN SQ SCH (09:06)
[2021-06-26] MEDS: SODIUM CHLORIDE 1,000 ML IV SCH (09:06)
[2021-06-26 09:36] LABS: ALBUMIN 3.6 g/dl (3.4-5.0); BLOOD UREA NITROGEN 4.5 mg/dL (7-18); CALCIUM 8.7 mg/dL (8.5-10.1)
[2021-06-26 09:37] LABS: MAGNESIUM 1.8 mg/dL (1.8-2.4)
[2021-06-26 09:40] LABS: CREATININE 0.5 mg/dL (0.55-1.3)
[2021-06-26 09:41] LABS: TOT PROT 7.2 g/dl (6.4-8.2)
[2021-06-26 09:42] LABS: BILIRUBIN,TOTAL 2.9 mg/dL (0.2-1)
== END 2021-06-26 16:34 | disposition home or self-care (01) | DRG 812 ==
LOC: JER 01:15 → JERBED 05:29 → J8W 10:48
PROVIDERS: ADMIT Internal Medicine; ATTEND Nurse Practitioner Family
PROC: 30233H1 Transfusion of Nonautologous Whole Blood into Peripheral Vein, Percutaneous Approach (ICD-10-PCS; principal; 2021-06-22)
DX: D57.01 Hb-SS disease with acute chest syndrome (principal); M54.9 Dorsalgia, unspecified; R10.9 Unspecified abdominal pain; F32.9 Major depressive disorder, single episode, unspecified
CPT/HCPCS: 36415; 36430; 36511; 71046-TC-FY; 80053; 82550; 83615; 83690; 83735; 84484; 84703; 85025; 85027; 85045; 85610; 85730; 86850; 86900; 86901; 86922; 87086; 93005; 93010; 99285-25; C9803; P9038; P9058; U0003; U0005

== ENCOUNTER 2022-01-05 12:56 | Emergency (ER) | payer OTHER ==
[2022-01-05 13:13] VITALS: BP 103/61; PULSE 78; TEMP 99; BMI 23.6
== END 2022-01-05 16:15 | disposition left against medical advice (07) ==
LOC: JER 12:56
DX: R10.9 Unspecified abdominal pain (principal); R19.7 Diarrhea, unspecified
CPT/HCPCS: 99283-25

== ENCOUNTER 2022-01-06 01:29 | Emergency (ER) | payer OTHER ==
[2022-01-06 02:04] VITALS: TEMP 97.8; BMI 24.3
[2022-01-06 02:55] LABS: EPI CELLS 29 /uL (0-25.1); HYALINE CASTS 0 /uL (0-3.1); URINE APPEARANCE CLEAR; URINE BACTERIA 280 /uL (0-1359); URINE BILIRUBIN NEGATIVE (NEGATIVE); URINE COLOR YELLOW; URINE GLUCOSE (UA) NEGATIVE (NEGATIVE); URINE KETONE NEGATIVE (NEGATIVE); URINE LEUK ESTERASE TRACE (NEGATIVE); URINE NITRITE NEGATIVE (NEGATIVE); URINE PROTEIN NEGATIVE (NEGATIVE); URINE UROBILINOGEN 0.2 mg/dL (0.2-1.0); URINE WBC 11 /uL (0-25.8)
[2022-01-06 04:43] LABS: SYPHILIS W/ RPR CONF NON-REACTIVE (NONREACTIVE)
[2022-01-06] MEDS ORDERED: AZITHROMYCIN 500 MG TABLET PO ONE (05:06)
[2022-01-06 05:12] LABS: HIV INTERPRETATION NEGATIVE (NEGATIVE)
[2022-01-06] MEDS ORDERED: AZITHROMYCIN 250 MG TABLET ONE (05:35)
[2022-01-06] MEDS ORDERED: LIDOCAINE HCL 1%, 10 MG/ML (20ML VIAL) ONE (05:35)
[2022-01-06] MEDS ORDERED: cefTRIAXone SODIUM 1 GM VIAL ONE (05:35)
[2022-01-06] MEDS ORDERED: NITROFURANTOIN MACROCRYSTAL 50 MG CAPSULE (FP) ONE (06:41)
[2022-01-06] MEDS ORDERED: NITROFURANTOIN MACROCRYSTAL 50 MG CAPSULE (FP) PO ONE (06:45)
[2022-01-06 07:44] VITALS: BP 105/60; PULSE 67
[2022-01-06 08:11] LABS: URINE RBC 29.6 /uL (0-23.9)
== END 2022-01-06 08:26 | disposition left against medical advice (07) ==
LOC: JER 01:29
PROC: 3E023GC Introduction of Other Therapeutic Substance into Muscle, Percutaneous Approach (ICD-10-PCS; principal; 2022-01-06)
DX: O26.899 Other specified pregnancy related conditions, unspecified trimester (principal); N94.10 Unspecified dyspareunia; Z3A.00 Weeks of gestation of pregnancy not specified
CPT/HCPCS: 36415; 76817-TC; 81003; 84702; 84703; 86780; 86803; 87086; 87389; 87491; 87591; 87661; 99284-25

== ENCOUNTER 2022-01-14 21:03 | Emergency (ER) | payer OTHER ==
[2022-01-14 21:12] VITALS: BP 114/66; PULSE 81; TEMP 98.6; BMI 24.3
[2022-01-14 22:30] LABS: BASO % 1.2 % (0-2.0); EOS % 1.4 % (0-4.5); HEMATOCRIT 25.8 % (32.4-45.2); HEMOGLOBIN 8.9 GM/dL (10.7-15.3); MCH 30.2 pg (25.7-33.7); MCHC 34.3 g/dl (32.0-36.0); MEAN PLT VOLUME 8.9 fl (7.5-11.1); NEUT % 64.4 % (42.8-82.8); PLATELET COUNT 326 10^3/uL (134-434); RBC 2.94 M/mm3 (3.60-5.2); RDW 16.7 % (11.6-15.6); WHITE BLOOD COUNT 9.5 K/mm3 (4.0-10.0)
[2022-01-14 22:42] LABS: INR 1.21 (0.83-1.09)
[2022-01-14 22:45] LABS: ACTIVATED PTT 33.4 SECONDS (25.2-36.5)
[2022-01-14 22:51] LABS: ALBUMIN 3.8 g/dl (3.4-5.0); BLOOD UREA NITROGEN 7.6 mg/dL (7-18); CALCIUM 8.7 mg/dL (8.5-10.1)
[2022-01-14 22:54] LABS: CREATININE 0.6 mg/dL (0.55-1.3)
[2022-01-14 22:56] LABS: BILIRUBIN,TOTAL 1.6 mg/dL (0.2-1); TOT PROT 8.1 g/dl (6.4-8.2)
[2022-01-14] MEDS ORDERED: POTASSIUM CHLORIDE TABS 20 MEQ TABLET.ER (FP) PO ONE ×2 (23:17→23:53)
[2022-01-15 00:37] LABS: EPI CELLS >36 /uL (0-25.1); HYALINE CASTS 8 /uL (0-3.1); URINE APPEARANCE CLOUDY; URINE BACTERIA 129 /uL (0-1359); URINE BILIRUBIN NEGATIVE (NEGATIVE); URINE COLOR DK YELLOW; URINE GLUCOSE (UA) NEGATIVE (NEGATIVE); URINE KETONE NEGATIVE (NEGATIVE); URINE LEUK ESTERASE 2+ (NEGATIVE); URINE NITRITE NEGATIVE (NEGATIVE); URINE PROTEIN 2+ (NEGATIVE); URINE WBC 226 /uL (0-25.8)
[2022-01-15] MEDS ORDERED: CEFPODOXIME PROXETIL 100 MG TABLET PO ONE (00:49)
[2022-01-15 06:08] LABS: YEAST FEW (NEGATIVE)
== END 2022-01-15 01:37 | disposition home or self-care (01) ==
LOC: JER 21:03
DX: O20.9 Hemorrhage in early pregnancy, unspecified (principal); Z3A.01 Less than 8 weeks gestation of pregnancy
CPT/HCPCS: 36415; 76817-TC; 80053; 81003; 84702; 85025; 85610; 85730; 86850; 86900; 86901; 87086; 99284-25

== ENCOUNTER 2022-01-19 08:58 | Emergency (ER) | payer OTHER ==
[2022-01-19 09:07] VITALS: BP 110/70; PULSE 67; BMI 24.3
[2022-01-19 09:08] VITALS: TEMP 97.7
[2022-01-19 10:07] LABS: BASO % 2.2 % (0-2.0); EOS % 1.5 % (0-4.5); HEMATOCRIT 25.3 % (32.4-45.2); HEMOGLOBIN 8.7 GM/dL (10.7-15.3); LYMPH % 41.8 % (8-40); MCH 30.2 pg (25.7-33.7); MCHC 34.3 g/dl (32.0-36.0); MEAN CELL VOLUME 88.1 fl (80-96); MONO % 11.5 % (3.8-10.2); PLATELET COUNT 391 10^3/uL (134-434); RBC 2.87 M/mm3 (3.60-5.2); RDW 16.4 % (11.6-15.6); WHITE BLOOD COUNT 5.7 K/mm3 (4.0-10.0)
[2022-01-19 10:10] LABS: EPI CELLS >36 /uL (0-25.1); HYALINE CASTS 4 /uL (0-3.1); PH,URINE 6.5 (5.0-8.0); URINE APPEARANCE CLOUDY; URINE BILIRUBIN NEGATIVE (NEGATIVE); URINE COLOR DK YELLOW; URINE GLUCOSE (UA) NEGATIVE (NEGATIVE); URINE KETONE NEGATIVE (NEGATIVE); URINE LEUK ESTERASE TRACE (NEGATIVE); URINE NITRITE NEGATIVE (NEGATIVE); URINE PROTEIN 2+ (NEGATIVE); URINE WBC 26 /uL (0-25.8)
[2022-01-19 10:26] LABS: BLOOD UREA NITROGEN 5.7 mg/dL (7-18)
[2022-01-19 10:29] LABS: CREATININE 0.6 mg/dL (0.55-1.3)
[2022-01-19 11:05] LABS: URINE BACTERIA 111.1 /uL (0-1359); URINE RBC 42.6 /uL (0-23.9)
== END 2022-01-19 12:10 | disposition home or self-care (01) ==
LOC: JER 08:58
DX: O20.0 Threatened abortion (principal)
CPT/HCPCS: 36415; 76817-TC; 80048; 81003; 84702; 85025; 86850; 86900; 86901; 87086; 99284-25

== ENCOUNTER 2022-03-05 10:05 | Emergency (ER) | payer OTHER ==
[2022-03-05 10:19] VITALS: BP 114/77; PULSE 85; TEMP 98.5; BMI 24.6
[2022-03-05 10:59] LABS: EPI CELLS >36 /uL (0-25.1); HYALINE CASTS 27 /uL (0-3.1); URINE APPEARANCE CLOUDY; URINE BILIRUBIN 1+ (NEGATIVE); URINE COLOR DK YELLOW; URINE GLUCOSE (UA) NEGATIVE (NEGATIVE); URINE KETONE NEGATIVE (NEGATIVE); URINE LEUK ESTERASE TRACE (NEGATIVE); URINE NITRITE NEGATIVE (NEGATIVE); URINE PROTEIN 3+ (NEGATIVE); URINE WBC 63 /uL (0-25.8)
[2022-03-05 13:27] LABS: URINE BACTERIA 36 /uL (0-1359); URINE RBC 86 /uL (0-23.9)
== END 2022-03-05 12:54 | disposition home or self-care (01) ==
LOC: JER 10:05
DX: O26.892 Other specified pregnancy related conditions, second trimester (principal); R10.84 Generalized abdominal pain; Z3A.14 14 weeks gestation of pregnancy
CPT/HCPCS: 36415; 76815-TC; 81003; 84702; 87086; 99284-25

== ENCOUNTER 2022-04-09 08:20 | Emergency (ER) | payer OTHER ==
[2022-04-09 08:28] VITALS: BP 110/61; PULSE 79; TEMP 98.4; BMI 25.7
== END 2022-04-09 10:10 | disposition home or self-care (01) ==
LOC: JER 08:20
DX: J06.9 Acute upper respiratory infection, unspecified (principal)
CPT/HCPCS: 0241U-QW; 99283-25

== ENCOUNTER 2022-06-15 07:21 | Emergency (ER) | payer OTHER ==
[2022-06-15 07:34] VITALS: BP 103/65; PULSE 81; RESP 16; TEMP 98.4; BMI 27.3
== END 2022-06-15 08:39 | disposition home or self-care (01) ==
LOC: JERFT 07:21
DX: O26.893 Other specified pregnancy related conditions, third trimester (principal); M25.552 Pain in left hip; Z3A.29 29 weeks gestation of pregnancy
CPT/HCPCS: 99281-25

== ENCOUNTER 2022-11-27 06:23 | Emergency (ER) | payer OTHER ==
[2022-11-27 06:35] VITALS: BP 134/69; PULSE 76; RESP 18; TEMP 97.4; BMI 26.9
[2022-11-27 07:26] LABS: HCG,QUALITATIVE URINE Negative
[2022-11-27 07:45] LABS: EPI CELLS 10 /uL (0-25.1); HYALINE CASTS 0 /uL (0-3.1); URINE APPEARANCE CLEAR; URINE BILIRUBIN 1+ (NEGATIVE); URINE COLOR DK YELLOW; URINE GLUCOSE (UA) NEGATIVE (NEGATIVE); URINE KETONE NEGATIVE (NEGATIVE); URINE LEUK ESTERASE 2+ (NEGATIVE); URINE NITRITE POSITIVE (NEGATIVE); URINE PROTEIN 2+ (NEGATIVE); URINE RBC 15 /uL (0-23.9); URINE WBC 505 /uL (0-25.8)
== END 2022-11-27 08:04 | disposition home or self-care (01) ==
LOC: JER 06:23
DX: N39.0 Urinary tract infection, site not specified (principal)
CPT/HCPCS: 36415; 81003; 84703; 87086; 87186; 87491; 87591; 99283-25

== ENCOUNTER 2023-12-10 13:55 | Emergency (ER) | payer OTHER ==
[2023-12-10 14:15] VITALS: BP 106/50; PULSE 78; RESP 18; TEMP 97.7; BMI 24.3
[2023-12-10] MEDS ORDERED: IBUPROFEN 600 MG TABLET (FP) PO ONE (15:13)
[2023-12-10] MEDS: IBUPROFEN 600 MG TABLET (FP) PO ONE (16:00)
== END 2023-12-10 16:00 | disposition home or self-care (01) ==
LOC: JERFT 13:55 → JER 13:55 → JERFT 16:00
DX: K08.89 Other specified disorders of teeth and supporting structures (principal); R68.84 Jaw pain
CPT/HCPCS: 99283-25

== ENCOUNTER 2024-02-16 09:27 | Emergency (ER) | payer OTHER ==
[2024-02-16 09:52] VITALS: BP 116/56; PULSE 56; RESP 18; TEMP 98; BMI 23.6
[2024-02-16] MEDS ORDERED: KETOROLAC TROMETHAMINE 30 MG/1 ML VIAL ONE (10:47)
[2024-02-16] MEDS: KETOROLAC TROMETHAMINE 30 MG/1 ML VIAL IM ONE (10:50)
== END 2024-02-16 11:48 | disposition home or self-care (01) ==
LOC: JER 09:27 → JERFT 09:27
PROC: 3E0133Z Introduction of Anti-inflammatory into Subcutaneous Tissue, Percutaneous Approach (ICD-10-PCS; principal; 2024-02-16)
DX: M77.8 Other enthesopathies, not elsewhere classified (principal); M79.641 Pain in right hand; R20.0 Anesthesia of skin
CPT/HCPCS: 99284-25